=== PATIENT | female | born 1980 | race African-American/Black ===

== ENCOUNTER 2017-01-28 23:49 | Emergency (ER) | payer MEDICARE, BC ==
[~2017-01-28] VITALS: Ht 167.6 cm; Wt 128.4 kg
[~2017-01-28 23:49] MED LIST: AMLO10TA4 PO; AMLO5TAB2 PO; HYDR25TA9 PO; LOSA100T6 PO; POTASSIUM CHLO10 MEQ PO; PROG100C2 PO
--- NOTE | 2017-01-29 00:20 | PHYS DOC ---
Past Medical History Past Medical History: Anxiety, Bronchitis, Hypertension, UTI Additional Past Medical Histor: possible MS Past Surgical History: Other Additional Past Surgical Histo: lip hip sx Alcohol Use: None Drug Use: None Adult General Chief Complaint Chief Complaint: VAGINAL PROBLEM HPI HPI Patient is a 36 year old female comes to emergency department stating that she' s had sexual intercourse approximately 2 months ago when she developed some vaginal irritation she states that he has a burning type sensation and has some white to clear discharge. She states that she is very irritated with a lot of soaps. She states that before her partner had sexual intercourse she did not have him wash off with fentanyl packs to prevent irritation. 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 She states the irritation continues to occur. She is unsure of the vaginal discharge at this time. She'll states that she does have a vaginal odor that smells like cream of mushroom. Patient states that she has not concern for sexual transmitted infections. Patient states she does have a history of hypertension and had not taken her medication this morning. Patient states that she has been under a lot of stress with family members being sick. Patient denies any increased shortness of air difficulty breathing. She denies any chest pain or discomfort. She denies any headaches blurred vision or any tinnitus. Review of Systems Review of Systems Constitutional: Denies fever or chills [] Eyes: Denies change in visual acuity, redness, or eye pain [] HENT: Denies nasal congestion or sore throat [] Respiratory: Denies cough or shortness of breath [] Cardiovascular: No additional information not addressed in HPI [] GI: Denies abdominal pain, nausea, vomiting, bloody stools or diarrhea [] : Denies dysuria or hematuria [] Musculoskeletal: Denies back pain or joint pain [] Integument: Denies rash or skin lesions [] Neurologic: Denies headache, focal weakness or sensory changes [] Endocrine: Denies polyuria or polydipsia [] C/o vaginal discharge with itching Current Medications Current Medications Current Medications Medications (Trade) Dose Ordered Sig/Devin Start Time Stop Time Status Last Admin Dose Admin Ceftriaxone Sodium (Rocephin Im) 250 mg 1X ONCE 01/29/17 01:00 01/29/17 01:01 DC Losartan Potassium (Cozaar) 50 mg 1X ONCE 01/29/17 01:00 01/29/17 01:01 DC Allergies Allergies Allergies Coded Allergies Type Severity Reaction Last Updated Verified No Known Drug Allergies 02/21/14 No Physical Exam Physical Exam Constitutional: Well developed, well nourished, no acute distress, non-toxic appearance. [] HENT: Normocephalic, atraumatic, bilateral external ears normal, oropharynx moist, no oral exudates, nose normal. [] Eyes: PERRLA, EOMI, conjunctiva normal, no discharge. [] Neck: Normal range of motion, no tenderness, supple, no stridor. [] Cardiovascular:Heart rate regular rhythm, no murmur [] Lungs & Thorax: Bilateral breath sounds clear to auscultation [] Abdomen: Bowel sounds hypoactive, soft, no tenderness, no masses, no pulsatile masses. [] Skin: Warm, dry, no erythema, no rash. [] Back: No tenderness Extremities: No tenderness, no cyanosis, no clubbing, ROM intact, no edema. [] Neurologic: Alert and oriented X 3, normal motor function, normal sensory function, no focal deficits noted. [] Psychologic: Affect normal, judgement normal, mood normal. [] Pelvic exam: Speculum exam patient with yellow vaginal discharge noted, manual exam patient with left adnexal tenderness. no CMT, Current Patient Data Vital Signs Vital Signs Date Time Temp Pulse Resp B/P (MAP) Pulse Ox O2 Delivery O2 Flow Rate FiO2 01/29/17 00:00 98.4 87 18 97 Room Air 98.4 Lab Values Laboratory Tests Test 01/29/17 00:08 Urine Collection Type U cath Urine Color Yellow Urine Clarity Clear Urine pH 6.0 Urine Specific [place] >=1.030 Urine Protein 30 mg/dL (NEG-TRACE) Urine Glucose (UA) Negative mg/dL (NEG) Urine Ketones (Stick) Trace mg/dL (NEG) Urine Blood Negative (NEG) Urine Nitrite Negative (NEG) Urine Bilirubin Negative (NEG) Urine Urobilinogen Dipstick 0.2 mg/dL (0.2 mg/dL) Urine Leukocyte Esterase Negative (NEG) Urine RBC 0 /HPF (0-2) Urine WBC Occ /HPF (0-4) Urine Squamous Epithelial Cells Few /LPF Urine Bacteria 0 /HPF (0-FEW) Urine Mucus Mod /LPF Microbiology 01/29/17 Wet Prep - Final, Complete Laboratory Tests Test 01/29/17 00:08 Urine Collection Type U cath Urine Color Yellow Urine Clarity Clear Urine pH 6.0 Urine Specific [place] >=1.030 Urine Protein 30 mg/dL (NEG-TRACE) Urine Glucose (UA) Negative mg/dL (NEG) Urine Ketones (Stick) Trace mg/dL (NEG) Urine Blood Negative (NEG) Urine Nitrite Negative (NEG) Urine Bilirubin Negative (NEG) Urine Urobilinogen Dipstick 0.2 mg/dL (0.2 mg/dL) Urine Leukocyte Esterase Negative (NEG) Urine RBC 0 /HPF (0-2) Urine WBC Occ /HPF (0-4) Urine Squamous Epithelial Cells Few /LPF Urine Bacteria 0 /HPF (0-FEW) Urine Mucus Mod /LPF Microbiology 01/29/17 Wet Prep - Final, Complete EKG EKG [] Radiology/Procedures Radiology/Procedures [] Course & Med Decision Making Course & Med Decision Making Pertinent Labs and Imaging studies reviewed. (See chart for details) Vaginal exam completed with history completed for urine sample. This was done with sterile technique. Results identify bacterial vaginosis, as well as details noted in the urine. Spoke with patient regards to her hypertension and taking her blood pressure medication. Patient was also encouraged take her blood pressure medicine when she arrived home. Recommended that she monitor her blood pressure as well as keeping a log of the measurement for when she follows up with her primary care physician. Also spoke with patient in regards to Flagyl in which she'll be placed on for the next [address] also place her on doxycycline as well for PID as she was having pain in the left adnexal area. Patient will be provided with a Rocephin injection here in the emergency department. Patient denies any concerns for STDs at this time. Encouraged patient to follow up with her primary care physician in regards to ketones. In her urine. Also as she has been having vaginal infections for the last 2 months. Patient agrees with discharge instructions treatment regimens and follow-up recommendations at this time. Patient was provided with signs and symptoms to return back to emergency department. Patient's blood pressure was retaken by myself with a blood pressure 169/97. Patient's losartan will be held and she will not be given that at this time. [] Dragon Disclaimer Dragon Disclaimer This electronic medical record was generated, in whole or in part, using a voice recognition dictation system. Departure Departure Impression: Primary Impression: Hypertension Additional Impressions: Bacterial vaginosis PID (acute pelvic inflammatory disease) Disposition: 01 HOME, SELF-CARE Condition: STABLE Referrals: CAM ZHONG (PCP) Patient Instructions: Bacterial Vaginosis, [id number], Hypertension, Pelvic Inflammatory Disease, [id number] Additional Instructions: Activity as tolerated Medication as prescribed Drink plenty of fluids Please take you Blood pressure medications as directed Monitor your blood pressure and keep a log to take to your primary care provider Avoid sexual intercourse for the next 2 weeks Followup with primary care provider in 3-5 days Return to emergency department as needed for signs and symptoms that become worse. Scripts Doxycycline Hyclate (DOXYCYCLINE HYCLATE) 100 Mg Capsule 1 CAP PO BID, #28 CAP Prov: JOSE ALBERTO SALEH APRN 01/29/17 Metronidazole (FLAGYL) 500 Mg Tablet 1 TAB PO BID, #14 TAB Prov: JOSE ALBERTO SALEH APRN 01/29/17 Problem Qualifiers JOSE ALBERTO SALEH APRN Jan 29, 2017 00:20
[2017-01-29 00:24] LABS: BILIRUBIN,URINE NEGATIVE (NEG); GLUCOSE,URINE NEGATIVE (NEG); NITRITE,URINE NEGATIVE (NEG); PROTEIN,URINE 30 mg/dL (NEG-TRACE); UROBILINOGEN,URINE 0.2 mg/dL (0.2 mg/dL)
[2017-01-29 00:27] LABS: BACTERIA,URINE 0 /HPF (0-FEW); RBC,URINE 0 /HPF (0-2); SQUAMOUS EPITHELIAL CELL,UR FEW /LPF; WBC,URINE OCC /HPF (0-4)
[2017-01-29] MEDS ORDERED: DOXY100C2 PO (00:57)
[2017-01-29] MEDS ORDERED: METR500T PO (00:57)
[2017-01-29 01:00] VITALS: BP 169/97
[2017-01-29] MEDS ORDERED: cefTRIAXone IM 250 MG VIAL IM ONE (01:00)
[2017-01-29] MEDS ORDERED: LOSARTAN POTASSIUM 50 MG TABLET. PO ONE (01:00)
== END 2017-01-29 01:17 | disposition home or self-care (01) ==
LOC: ER 23:49
DX: I10 Essential (primary) hypertension (principal); N76.0 Acute vaginitis; N73.9 Female pelvic inflammatory disease, unspecified; F41.9 Anxiety disorder, unspecified; Z87.440 Personal history of urinary (tract) infections
CPT/HCPCS: 81001; 87491; 87591; 96372; 99284; J0696; P9612; Q0111

== ENCOUNTER 2017-02-27 20:04 | Emergency (ER) | payer MEDICARE, BC ==
[~2017-02-27] VITALS: Ht 167.6 cm; Wt 125.6 kg
[~2017-02-27 20:04] MED LIST changes: +DOXY100C2 PO; +METR500T PO
[2017-02-27] MEDS ORDERED: ONDANSETRON PF 4 MG/2 ML VIAL. IV ONE ×2 (20:45→21:45)
[2017-02-27 21:14] LABS: BASO # 0.1 x10^3/uL (0.0-0.2); BASO % 1 % (0-3); EOS % 0 % (0-3); HEMATOCRIT 42.7 % (36.0-47.0); HEMOGLOBIN 13.8 g/dL (12.0-15.5); LYMPH # 1.5 x10^3/uL (1.0-4.8); LYMPH % 12 % (24-48); MEAN CORPUSCULAR HEMOGLOBIN 30 pg (25-35); MEAN CORPUSCULAR HGB CONC 32 g/dL (31-37); MEAN CORPUSCULAR VOLUME 93 fL (79-100); MONO % 6 % (0-9); NEUT % 81 % (31-73); PLATELET COUNT 385 x10^3/uL (140-400); RED BLOOD COUNT 4.57 x10^6/uL (3.50-5.40); RED CELL DISTRIBUTION WIDTH 15.1 % (11.5-14.5); WHITE BLOOD COUNT 12.9 x10^3/uL (4.0-11.0)
--- NOTE | 2017-02-27 21:18 | PHYS DOC ---
Past Medical History Past Medical History: Anxiety, Bronchitis, Hypertension, UTI Additional Past Medical Histor: possible MS, PCOS Past Surgical History: Other Additional Past Surgical Histo: L hip sx Alcohol Use: None Drug Use: None Adult General Chief Complaint Chief Complaint: HYPERVENTILATION HPI HPI Patient is a 36 year old -Prydeinig Prydeinig female who presents with nausea, headache and high blood pressure. She states she's been out of her clonidine is which she takes when she started getting a headache and her high blood pressure flares up. She states she's been compliant with her other medications. She states the headaches a constant dull ache across the frontal aspect of her forehead and she vomited once. She states this happens every time her blood pressure gets out of control. She states this morning she ate a [place] [employer] breakfast which she hardly ever does and she is sure that the salt content has raised her blood pressure. She denies any chest pain, shortness of breath or abdominal pain. She is requesting 0.1 mg clonidine and states that this usually will take away her headache. She hasn't tried any Tylenol or other medications as she states only clonidine makes her headaches better when this happens. Review of Systems Review of Systems Constitutional: Denies fever or chills [] Eyes: Denies change in visual acuity, redness, or eye pain [] HENT: Denies nasal congestion or sore throat [] Respiratory: Denies cough or shortness of breath [] Cardiovascular: No additional information not addressed in HPI [] GI: Denies abdominal pain, nausea, vomiting, bloody stools or diarrhea [] : Denies dysuria or hematuria [] Musculoskeletal: Denies back pain or joint pain [] Integument: Denies rash or skin lesions [] Neurologic: Denies , focal weakness or sensory changes, positive for headache[] Endocrine: Denies polyuria or polydipsia [] Current Medications Current Medications Current Medications Medications (Trade) Dose Ordered Sig/Devin Start Time Stop Time Status Last Admin Dose Admin Clonidine HCl (Catapres) 0.1 mg 1X ONCE 02/27/17 21:30 02/27/17 21:31 DC 02/27/17 21:34 0.1 MG Ondansetron HCl (Zofran) 4 mg 1X ONCE 02/27/17 21:45 02/27/17 21:46 DC 02/27/17 22:01 4 MG Allergies Allergies Allergies Coded Allergies Type Severity Reaction Last Updated Verified No Known Drug Allergies 02/21/14 No Physical Exam Physical Exam Constitutional: Well developed, well nourished, no acute distress, non-toxic appearance. [] HENT: Normocephalic, atraumatic, bilateral external ears normal, oropharynx moist, no oral exudates, nose normal. [] Eyes: PERRLA, EOMI, conjunctiva normal, no discharge. [] Neck: Normal range of motion, no tenderness, supple, no stridor. [] Cardiovascular:Heart rate regular rhythm, no murmur [] Lungs & Thorax: Bilateral breath sounds clear to auscultation [] Abdomen: Bowel sounds normal, soft, no tenderness, no masses, no pulsatile masses. [] Skin: Warm, dry, no erythema, no rash. [] Back: No tenderness, no CVA tenderness. [] Extremities: No tenderness, no cyanosis, no clubbing, ROM intact, no edema. [] Neurologic: Alert and oriented X 3, normal motor function, normal sensory function, no focal deficits noted. [] Psychologic: Affect normal, judgement normal, mood normal. [] Current Patient Data Vital Signs Vital Signs Date Time Temp Pulse Resp B/P (MAP) Pulse Ox O2 Delivery O2 Flow Rate FiO2 02/27/17 22:15 76 18 160/90 (113) 96 02/27/17 21:27 Room Air 02/27/17 20:15 98.8 98.8 Lab Values Laboratory Tests Test 02/27/17 20:28 02/27/17 20:35 02/27/17 21:10 POC Urine HCG, Qualitative Hcg negative (Negative) White Blood Count 12.9 x10^3/uL (4.0-11.0) H Red Blood Count 4.57 x10^6/uL (3.50-5.40) Hemoglobin 13.8 g/dL (12.0-15.5) Hematocrit 42.7 % (36.0-47.0) Mean Corpuscular Volume 93 fL (79-100) Mean Corpuscular Hemoglobin 30 pg (25-35) Mean Corpuscular Hemoglobin Concent 32 g/dL (31-37) Red Cell Distribution Width 15.1 % (11.5-14.5) H Platelet Count 385 x10^3/uL (140-400) Neutrophils (%) (Auto) 81 % (31-73) H Lymphocytes (%) (Auto) 12 % (24-48) L Monocytes (%) (Auto) 6 % (0-9) Eosinophils (%) (Auto) 0 % (0-3) Basophils (%) (Auto) 1 % (0-3) Neutrophils # (Auto) 10.5 x10^3uL (1.8-7.7) H Lymphocytes # (Auto) 1.5 x10^3/uL (1.0-4.8) Monocytes # (Auto) 0.8 x10^3/uL (0.0-1.1) Eosinophils # (Auto) 0.0 x10^3/uL (0.0-0.7) Basophils # (Auto) 0.1 x10^3/uL (0.0-0.2) Sodium Level 141 mmol/L (136-145) Potassium Level 4.0 mmol/L (3.5-5.1) Chloride Level 102 mmol/L (98-107) Carbon Dioxide Level 28 mmol/L (21-32) Anion Gap 11 (6-14) Blood Urea Nitrogen 11 mg/dL (7-20) Creatinine 1.1 mg/dL (0.6-1.0) H Estimated GFR (Cockcroft-Gault) 67.3 Glucose Level 103 mg/dL (70-99) H Calcium Level 9.4 mg/dL (8.5-10.1) Total Bilirubin 0.5 mg/dL (0.2-1.0) Direct Bilirubin 0.1 mg/dL (0.0-0.2) Aspartate Amino Transferase (AST) 25 U/L (15-37) Alanine Aminotransferase (ALT) 34 U/L (14-59) Alkaline Phosphatase 96 U/L (46-116) Creatine Kinase 89 U/L (26-192) Creatine Kinase MB (Mass) < 0.5 ng/mL (0.0-3.6) Creatine Kinase MB Relative Index 0.6 % (0-4) Troponin I Quantitative < 0.017 ng/mL (0.000-0.055) JU-[id number]-W-Type Natriuretic Peptide 53 pg/mL (0-124) Total Protein 7.9 g/dL (6.4-8.2) Albumin 4.2 g/dL (3.4-5.0) Urine Collection Type Unknown Urine Color Yellow Urine Clarity Clear Urine pH 7.5 Urine Specific [place] 1.015 Urine Protein Negative mg/dL (NEG-TRACE) Urine Glucose (UA) Negative mg/dL (NEG) Urine Ketones (Stick) Negative mg/dL (NEG) Urine Blood Negative (NEG) Urine Nitrite Negative (NEG) Urine Bilirubin Negative (NEG) Urine Urobilinogen Dipstick 0.2 mg/dL (0.2 mg/dL) Urine Leukocyte Esterase Trace (NEG) Urine RBC 0 /HPF (0-2) Urine WBC Occ /HPF (0-4) Urine Squamous Epithelial Cells Many /LPF Urine Bacteria Few /HPF (0-FEW) Urine Mucus Slight /LPF Urine Opiates Screen Neg (NEG) Urine Methadone Screen Neg (NEG) Urine Barbiturates Neg (NEG) Urine Phencyclidine Screen Neg (NEG) Urine Amphetamine/Methamphetamine Neg (NEG) Urine Benzodiazepines Screen Neg (NEG) Urine Cocaine Screen Neg (NEG) Urine Cannabinoids Screen Neg (NEG) Urine Ethyl Alcohol Neg (NEG) Laboratory Tests 02/27/17 20:35 Laboratory Tests 02/27/17 20:35 EKG EKG EKG shows sinus rhythm with a rate of [address] elevations, flattening of the T waves in lead 3, left axis deviation, QTC 456 ms, as interpreted by me. Radiology/Procedures Radiology/Procedures [] Impressions: Hypertension Headache Course & Med Decision Making Course & Med Decision Making Pertinent Labs and Imaging studies reviewed. (See chart for details) Her labs show any acute abnormality. After 0.1 mg clonidine she states her headache has now resolved. Her blood pressures in the 160s. Patient is being discharged with 10 tablets 0.1 mg clonidine to be used as needed with systolics rate of 170. Patient's follow-up primary care physician within next week. Return precautions given. She is agreeable plan and being discharged in stable condition this time. Dragon Disclaimer Dragon Disclaimer This electronic medical record was generated, in whole or in part, using a voice recognition dictation system. Departure Departure Impression: Primary Impression: Hypertension Disposition: HOME, SELF-CARE Condition: STABLE Referrals: CAM ZHONG (PCP) Patient Instructions: Arterial Hypertension Additional Instructions: You were seen today for your elevated blood pressure and headache. You were given clonidine 0.1 mg and your blood pressure has improved and headache have now resolved area in your being discharged home with 10 tablets of 0.1 mg clonidine to use when necessary blood pressure greater than 170s. Need to call your primary care physician if you need to use this medicine for your high blood pressure. You will need to follow-up with your primary care physician. Return ER for severe chest pain, uncontrolled nausea vomiting, headaches or other concerns. Scripts Clonidine Hcl (CLONIDINE HCL) 0.1 Mg Tablet 0.1 MG PO DAILY Y for ELEVATED BP, SEE COMMENTS, #10 TAB for systolic blood pressure over 170mmhg, take 1 tablet prn Prov: SAL LOONEY MD 02/27/17 Problem Qualifiers Primary Impression: Hypertension Hypertension type: essential hypertension Qualified Codes: I10 - Essential ( primary) hypertension SAL LOONEY MD Feb 27, 2017 21:18
[2017-02-27 21:28] LABS: CALCIUM 9.4 mg/dL (8.5-10.1); CREATININE 1.1 mg/dL (0.6-1.0); GFR 67.3
[2017-02-27 21:29] LABS: BILIRUBIN,URINE NEGATIVE (NEG); GLUCOSE,URINE NEGATIVE (NEG); NITRITE,URINE NEGATIVE (NEG); PH,URINE 7.5; PROTEIN,URINE NEGATIVE (NEG-TRACE); UROBILINOGEN,URINE 0.2 mg/dL (0.2 mg/dL)
[2017-02-27] MEDS ORDERED: cloNIDine HCL 0.1 MG TABLET PO ONE (21:30)
[2017-02-27 21:34] LABS: ALBUMIN 4.2 g/dL (3.4-5.0); DIRECT BILIRUBIN 0.1 mg/dL (0.0-0.2); TOTAL BILIRUBIN 0.5 mg/dL (0.2-1.0); TOTAL PROTEIN 7.9 g/dL (6.4-8.2)
[2017-02-27 21:34] LABS: BARBITURATES NEG (NEG); BENZODIAZEPINES NEG (NEG); CANNABINOIDS NEG (NEG); COCAINE NEG (NEG); METHADONE NEG (NEG); OPIATES NEG (NEG); PHENCYCLIDINE NEG (NEG)
[2017-02-27 21:38] LABS: BACTERIA,URINE FEW /HPF (0-FEW); RBC,URINE 0 /HPF (0-2); SQUAMOUS EPITHELIAL CELL,UR MANY /LPF; WBC,URINE OCC /HPF (0-4)
[2017-02-27 21:44] LABS: CKMB MASS < 0.5 ng/mL (0.0-3.6); CREATINE KINASE 89 U/L (26-192)
[2017-02-27] MEDS ORDERED: CLON0.1T PO (22:47)
[2017-02-27 22:55] VITALS: BP 146/97
--- NOTE | 2017-02-28 08:19 | EKG ---
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
== END 2017-02-27 22:56 | disposition home or self-care (01) ==
LOC: ER 20:04
DX: I10 Essential (primary) hypertension (principal); F41.9 Anxiety disorder, unspecified; Z87.440 Personal history of urinary (tract) infections; Z79.899 Other long term (current) drug therapy
CPT/HCPCS: 36415; 80048; 80076; 80305; 80320; 81001; 81025; 82553; 83880; 84484; 85027; 87086; 93005; 96374; 96376; 99285; J2405; 96375; G0481

== ENCOUNTER → 2017-11-04 | Outpatient (CLI) | payer MEDICARE, BC | END | disposition home or self-care (01) | LOC: ECHO 09:05 | DX: I11.9 Hypertensive heart disease without heart failure (principal) | CPT/HCPCS: 93306 ==

== ENCOUNTER 2018-08-07 18:00 | Emergency (ER) | payer MEDICARE, BC ==
[~2018-08-07] VITALS: Ht 167.6 cm; Wt 120.2 kg
[~2018-08-07 18:00] MED LIST changes: -AMLO5TAB2 PO; +AMLO5TAB7 PO; +CLON0.1T PO; +HYDR-2145 PO; -HYDR25TA9 PO; +LOSA100T14 PO; -LOSA100T6 PO; +POTA10TA12 PO; -POTASSIUM CHLO10 MEQ PO
[2018-08-07] MEDS: cloNIDine HCL 0.1 MG TABLET PO ONE (18:34)
[2018-08-07 18:50] LABS: BASO # 0.1 x10^3/uL (0.0-0.2); BASO % 1 % (0-3); EOS # 0.1 x10^3/uL (0.0-0.7); EOS % 1 % (0-3); HEMATOCRIT 41.7 % (36.0-47.0); HEMOGLOBIN 14.1 g/dL (12.0-15.5); LYMPH # 1.5 x10^3/uL (1.0-4.8); LYMPH % 18 % (24-48); MEAN CORPUSCULAR HEMOGLOBIN 30 pg (25-35); MEAN CORPUSCULAR HGB CONC 34 g/dL (31-37); MEAN CORPUSCULAR VOLUME 88 fL (79-100); MONO # 0.6 x10^3/uL (0.0-1.1); MONO % 7 % (0-9); NEUT # 6.2 x10^3uL (1.8-7.7); NEUT % 74 % (31-73); PLATELET COUNT 355 x10^3/uL (140-400); RED BLOOD COUNT 4.73 x10^6/uL (3.50-5.40); RED CELL DISTRIBUTION WIDTH 16.1 % (11.5-14.5); WHITE BLOOD COUNT 8.5 x10^3/uL (4.0-11.0)
[2018-08-07 18:58] LABS: CALCIUM 10.2 mg/dL (8.5-10.1); CREATININE 1.3 mg/dL (0.6-1.0); GFR 55.2; POTASSIUM 3.7 mmol/L (3.5-5.1)
[2018-08-07 19:04] LABS: TOTAL BILIRUBIN 0.8 mg/dL (0.2-1.0); TOTAL PROTEIN 8.1 g/dL (6.4-8.2)
[2018-08-07 19:45] VITALS: BP 155/98
[2018-08-07 20:12] LABS: BILIRUBIN,URINE NEGATIVE (NEG); CLARITY,URINE CLEAR; COLOR,URINE YELLOW; NITRITE,URINE NEGATIVE (NEG); PH,URINE 5.5; PROTEIN,URINE NEGATIVE (NEG-TRACE); UROBILINOGEN,URINE 0.2 mg/dL (0.2 mg/dL)
[2018-08-07 20:21] LABS: BACTERIA,URINE FEW /HPF (0-FEW); SQUAMOUS EPITHELIAL CELL,UR MOD /LPF
[2018-08-07 20:22] LABS: RBC,URINE 0 /HPF (0-2); WBC,URINE OCC /HPF (0-4)
[2018-08-07] MEDS ORDERED: CLON0.2T PO (20:43)
--- NOTE | 2018-08-07 20:43 | PHYS DOC ---
Past Medical History Past Medical History: Anxiety, Bronchitis, Hypertension, UTI Additional Past Medical Histor: possible MS, PCOS Past Surgical History: Other Additional Past Surgical Histo: L hip sx Alcohol Use: Occasionally Drug Use: None Adult General Chief Complaint Chief Complaint: HYPERTENSION HPI HPI Patient is a 37-year-old female who presents with complaint of elevated blood pressure. Patient states that 2 of her hypertensive medications are on recall so she is only taking 1 of her 3 medications. She states that she thought that her blood pressure was getting elevated because she was a little bit dizzy today. She denies any chest pain or shortness of breath. Patient states that there are no aggravating or alleviating factors.[] Review of Systems Review of Systems Constitutional: Denies fever or chills [] Eyes: Denies change in visual acuity, redness, or eye pain [] Respiratory: Denies cough or shortness of breath [] Cardiovascular: No additional information not addressed in HPI [] Musculoskeletal: Denies back pain or joint pain [] Neurologic: Denies headache, focal weakness or sensory changes. Patient reports to mild dizziness. [] All other systems were reviewed and found to be within normal limits, except as documented in this note. Current Medications Current Medications Current Medications Medications (Trade) Dose Ordered Sig/Devin Start Time Stop Time Status Last Admin Dose Admin Clonidine HCl (Catapres) 0.2 mg 1X ONCE 08/07/18 18:45 08/07/18 18:46 DC 08/07/18 18:34 0.2 MG Allergies Allergies Allergies Coded Allergies Type Severity Reaction Last Updated Verified No Known Drug Allergies 02/21/14 No Physical Exam Physical Exam Constitutional: Well developed, well nourished, no acute distress, non-toxic appearance. [] HENT: Normocephalic, atraumatic, bilateral external ears normal, oropharynx moist, no oral exudates, nose normal. [] Eyes: PERRLA, EOMI, conjunctiva normal, no discharge. [] Neck: Normal range of motion, no tenderness, supple, no stridor. [] Cardiovascular: Regular rate and rhythm [] Lungs & Thorax: Bilateral breath sounds clear to auscultation [] Abdomen: Bowel sounds normal, soft, no tenderness. [] Skin: Warm, dry, no erythema, no rash. [] Extremities: No tenderness, no cyanosis, no clubbing, ROM intact, no edema. [] Neurologic: Alert and oriented X 3, normal motor function, normal sensory function, no focal deficits noted. [] Current Patient Data Vital Signs Vital Signs Date Time Temp Pulse Resp B/P (MAP) Pulse Ox O2 Delivery O2 Flow Rate FiO2 08/07/18 19:45 78 17 98 08/07/18 18:34 174/124 08/07/18 18:22 97.9 Room Air 97.9 Lab Values Laboratory Tests Test 08/07/18 18:40 08/07/18 20:00 White Blood Count 8.5 x10^3/uL (4.0-11.0) Red Blood Count 4.73 x10^6/uL (3.50-5.40) Hemoglobin 14.1 g/dL (12.0-15.5) Hematocrit 41.7 % (36.0-47.0) Mean Corpuscular Volume 88 fL (79-100) Mean Corpuscular Hemoglobin 30 pg (25-35) Mean Corpuscular Hemoglobin Concent 34 g/dL (31-37) Red Cell Distribution Width 16.1 % (11.5-14.5) H Platelet Count 355 x10^3/uL (140-400) Neutrophils (%) (Auto) 74 % (31-73) H Lymphocytes (%) (Auto) 18 % (24-48) L Monocytes (%) (Auto) 7 % (0-9) Eosinophils (%) (Auto) 1 % (0-3) Basophils (%) (Auto) 1 % (0-3) Neutrophils # (Auto) 6.2 x10^3uL (1.8-7.7) Lymphocytes # (Auto) 1.5 x10^3/uL (1.0-4.8) Monocytes # (Auto) 0.6 x10^3/uL (0.0-1.1) Eosinophils # (Auto) 0.1 x10^3/uL (0.0-0.7) Basophils # (Auto) 0.1 x10^3/uL (0.0-0.2) Sodium Level 138 mmol/L (136-145) Potassium Level 3.7 mmol/L (3.5-5.1) Chloride Level 102 mmol/L (98-107) Carbon Dioxide Level 32 mmol/L (21-32) Anion Gap 4 (6-14) L Blood Urea Nitrogen 12 mg/dL (7-20) Creatinine 1.3 mg/dL (0.6-1.0) H Estimated GFR (Cockcroft-Gault) 55.2 BUN/Creatinine Ratio 9 (6-20) Glucose Level 102 mg/dL (70-99) H Calcium Level 10.2 mg/dL (8.5-10.1) H Total Bilirubin 0.8 mg/dL (0.2-1.0) Aspartate Amino Transferase (AST) 17 U/L (15-37) Alanine Aminotransferase (ALT) 28 U/L (14-59) Alkaline Phosphatase 95 U/L (46-116) Troponin I Quantitative < 0.017 ng/mL (0.000-0.055) Total Protein 8.1 g/dL (6.4-8.2) Albumin 4.0 g/dL (3.4-5.0) Albumin/Globulin Ratio 1.0 (1.0-1.7) Urine Collection Type Unknown Urine Color Yellow Urine Clarity Clear Urine pH 5.5 Urine Specific [place] 1.020 Urine Protein Negative mg/dL (NEG-TRACE) Urine Glucose (UA) Negative mg/dL (NEG) Urine Ketones (Stick) Negative mg/dL (NEG) Urine Blood Negative (NEG) Urine Nitrite Negative (NEG) Urine Bilirubin Negative (NEG) Urine Urobilinogen Dipstick 0.2 mg/dL (0.2 mg/dL) Urine Leukocyte Esterase Negative (NEG) Urine RBC 0 /HPF (0-2) Urine WBC Occ /HPF (0-4) Urine Squamous Epithelial Cells Mod /LPF Urine Bacteria Few /HPF (0-FEW) Urine Mucus Mod /LPF Laboratory Tests 08/07/18 18:40 Laboratory Tests 08/07/18 18:40 EKG EKG [] Radiology/Procedures Radiology/Procedures [] Course & Med Decision Making Course & Med Decision Making Pertinent Labs and Imaging studies reviewed. (See chart for details) [] Dragon Disclaimer Dragon Disclaimer This electronic medical record was generated, in whole or in part, using a voice recognition dictation system. Departure Departure Impression: Primary Impression: Hypertension Disposition: 01 HOME, SELF-CARE Condition: STABLE Referrals: CAM ZHONG (PCP) Patient Instructions: Hypertension Scripts Clonidine Hcl (CLONIDINE HCL) 0.2 Mg Tablet 1 TAB PO BID, #20 TAB Prov: CATIE CORDOVA Jr., DO 08/07/18 Problem Qualifiers Primary Impression: Hypertension Hypertension type: essential hypertension Qualified Codes: I10 - Essential ( primary) hypertension CATIE CORDOVA Jr. DO Aug 07, 2018 20:43
--- NOTE | 2018-08-08 06:32 | EKG ---
[facility] [address] [place] [address] Test Date: 2018-08-07 Test Time: 18:27:07 Pat Name: MANNY SMITH Department: Room: Gender: F Coil Tier: : 1980 Requested By: CATIE CORDOVA Order Number: [id number] Reading MD: Measurements Intervals [place] Rate: 81 P: 0 NM: 150 QRS: 1 QRSD: 84 T: 58 QT: 444 QTc: 516 Interpretive Statements SINUS RHYTHM PROLONGED QT NO SPECIFIC ECG ABNORMALITIES RI6.01 No previous ECG available for comparison
== END 2018-08-07 20:55 | disposition home or self-care (01) ==
LOC: ER 18:00
DX: I10 Essential (primary) hypertension (principal); F41.9 Anxiety disorder, unspecified
CPT/HCPCS: 36415; 80053; 81001; 84484; 85025; 93005; 99284-25

== ENCOUNTER 2018-08-08 17:34 | Emergency (ER) | payer MEDICARE, BC ==
[~2018-08-08] VITALS: Ht 167.6 cm; Wt 121.1 kg
[~2018-08-08 17:34] MED LIST changes: +CLON0.2T PO
--- NOTE | 2018-08-08 18:28 | PHYS DOC ---
Past Medical History Past Medical History: Anxiety, Bronchitis, Hypertension, UTI Additional Past Medical Histor: possible MS, PCOS Past Surgical History: Other Additional Past Surgical Histo: L hip sx Alcohol Use: Rarely Drug Use: None Adult General Chief Complaint Chief Complaint: CHEST PAIN HPI HPI Patient is a 37 year old female who presents with chest pain. This been present intermittently for the past several days. No worse with exertion or movement. No radiation. Occasional nausea. No diaphoresis. No new swelling in legs feet or ankles. No PE risk factors. Patient was recently started on clonidine for her hypertension since her normal blood pressure medicines are on recall. Patient reports the discomfort feels like "a glob of phlegm at the lower part of my chest" and this most recent episode started while she was laying down. Reports that her discomfort didn't improve with taking 2 of the clonidine tablets. [] Review of Systems Review of Systems Constitutional: Denies fever or chills [] Eyes: Denies change in visual acuity, redness, or eye pain [] HENT: Denies nasal congestion or sore throat [] Respiratory: Denies cough or shortness of breath [] Cardiovascular: No additional information not addressed in HPI [] GI: Denies abdominal pain, nausea, vomiting, bloody stools or diarrhea [] : Denies dysuria or hematuria [] Musculoskeletal: Denies back pain or joint pain [] Integument: Denies rash or skin lesions [] Neurologic: Denies headache, focal weakness or sensory changes [] Endocrine: Denies polyuria or polydipsia [] All other systems were reviewed and found to be within normal limits, except as documented in this note. Current Medications Current Medications Current Medications Medications (Trade) Dose Ordered Sig/Devin Start Time Stop Time Status Last Admin Dose Admin Aspirin (Children'S Aspirin) 324 mg 1X ONCE 08/08/18 18:30 08/08/18 18:31 DC 08/08/18 19:06 324 MG Info (CONTRAST GIVEN -- Rx MONITORING) 1 each PRN DAILY PRN 08/08/18 21:15 08/10/18 21:14 Iohexol (Omnipaque 300 Mg/ml) 100 ml 1X ONCE 08/08/18 21:30 08/08/18 21:31 DC 08/08/18 21:21 100 ML Allergies Allergies Allergies Coded Allergies Type Severity Reaction Last Updated Verified No Known Drug Allergies 02/21/14 No Physical Exam Physical Exam Constitutional: Well developed, well nourished, no acute distress, non-toxic appearance. [] HENT: Normocephalic, atraumatic, bilateral external ears normal, oropharynx moist, no oral exudates, nose normal. [] Eyes: PERRLA, EOMI, conjunctiva normal, no discharge. [] Neck: Normal range of motion, no tenderness, supple, no stridor. [] Cardiovascular:Heart rate regular rhythm, no murmur [] Lungs & Thorax: Bilateral breath sounds clear to auscultation [] Abdomen: Bowel sounds normal, soft, no tenderness, no masses, no pulsatile masses. [] Skin: Warm, dry, no erythema, no rash. [] Back: No tenderness, no CVA tenderness. [] Extremities: No tenderness, no cyanosis, no clubbing, ROM intact, no edema. [] Neurologic: Alert and oriented X 3, normal motor function, normal sensory function, no focal deficits noted. [] Psychologic: Affect normal, judgement normal, mood normal. [] Current Patient Data Vital Signs Vital Signs Date Time Temp Pulse Resp B/P (MAP) Pulse Ox O2 Delivery O2 Flow Rate FiO2 08/08/18 20:00 66 16 136/85 (102) 97 Room Air 08/08/18 17:43 98.5 98.5 Lab Values Laboratory Tests Test 08/08/18 18:08 08/08/18 19:11 08/08/18 19:30 08/08/18 19:34 White Blood Count 7.3 x10^3/uL (4.0-11.0) Red Blood Count 4.45 x10^6/uL (3.50-5.40) Hemoglobin 13.2 g/dL (12.0-15.5) Hematocrit 39.6 % (36.0-47.0) Mean Corpuscular Volume 89 fL (79-100) Mean Corpuscular Hemoglobin 30 pg (25-35) Mean Corpuscular Hemoglobin Concent 33 g/dL (31-37) Red Cell Distribution Width 15.6 % (11.5-14.5) H Platelet Count 338 x10^3/uL (140-400) Neutrophils (%) (Auto) 68 % (31-73) Lymphocytes (%) (Auto) 21 % (24-48) L Monocytes (%) (Auto) 8 % (0-9) Eosinophils (%) (Auto) 1 % (0-3) Basophils (%) (Auto) 1 % (0-3) Neutrophils # (Auto) 5.0 x10^3uL (1.8-7.7) Lymphocytes # (Auto) 1.5 x10^3/uL (1.0-4.8) Monocytes # (Auto) 0.6 x10^3/uL (0.0-1.1) Eosinophils # (Auto) 0.1 x10^3/uL (0.0-0.7) Basophils # (Auto) 0.1 x10^3/uL (0.0-0.2) Prothrombin Time 13.0 SEC (11.7-14.0) Prothrombin Time INR 1.0 (0.8-1.1) D-Dimer (Mayela) 1.64 ug/mlFEU (0.00-0.50) H Sodium Level 139 mmol/L (136-145) Potassium Level 3.2 mmol/L (3.5-5.1) L Chloride Level 101 mmol/L (98-107) Carbon Dioxide Level 30 mmol/L (21-32) Anion Gap 8 (6-14) Blood Urea Nitrogen 11 mg/dL (7-20) Creatinine 1.1 mg/dL (0.6-1.0) H Estimated GFR (Cockcroft-Gault) 66.9 BUN/Creatinine Ratio 10 (6-20) Glucose Level 110 mg/dL (70-99) H Calcium Level 9.2 mg/dL (8.5-10.1) Magnesium Level 1.9 mg/dL (1.8-2.4) Total Bilirubin 0.5 mg/dL (0.2-1.0) Aspartate Amino Transferase (AST) 15 U/L (15-37) Alanine Aminotransferase (ALT) 23 U/L (14-59) Alkaline Phosphatase 91 U/L (46-116) Troponin I Quantitative < 0.017 ng/mL (0.000-0.055) KG-Bud-L-Type Natriuretic Peptide 11 pg/mL (0-124) Total Protein 7.7 g/dL (6.4-8.2) Albumin 3.6 g/dL (3.4-5.0) Albumin/Globulin Ratio 0.9 (1.0-1.7) L Lipase 121 U/L (73-393) Urine Collection Type Unknown Urine Color Yellow Urine Clarity Clear Urine pH 5.5 Urine Specific [place] 1.010 Urine Protein Negative mg/dL (NEG-TRACE) Urine Glucose (UA) Negative mg/dL (NEG) Urine Ketones (Stick) Negative mg/dL (NEG) Urine Blood Negative (NEG) Urine Nitrite Negative (NEG) Urine Bilirubin Negative (NEG) Urine Urobilinogen Dipstick 0.2 mg/dL (0.2 mg/dL) Urine Leukocyte Esterase Negative (NEG) Urine RBC 0 /HPF (0-2) Urine WBC 1-4 /HPF (0-4) Urine Squamous Epithelial Cells Few /LPF Urine Bacteria 0 /HPF (0-FEW) Urine Opiates Screen Neg (NEG) Urine Methadone Screen Neg (NEG) Urine Barbiturates Neg (NEG) Urine Phencyclidine Screen Neg (NEG) Urine Amphetamine/Methamphetamine Neg (NEG) Urine Benzodiazepines Screen Neg (NEG) Urine Cocaine Screen Neg (NEG) Urine Cannabinoids Screen Neg (NEG) Urine Ethyl Alcohol Neg (NEG) POC Urine HCG, Qualitative Hcg negative (Negative) Laboratory Tests 08/08/18 18:08 Laboratory Tests 08/08/18 19:11 EKG EKG EKG shows a sinus rhythm at 82 bpm, normal axis, normal QTC, no ST elevations,[] Radiology/Procedures Radiology/Procedures Chest x-ray FINDINGS: Heart is normal in size. Lungs are clear. No pneumothorax or effusion. Visualized bony thorax is within normal limits. IMPRESSION: No acute pulmonary process. CTA of the chest [] Course & Med Decision Making Course & Med Decision Making Pertinent Labs and Imaging studies reviewed. (See chart for details) ED course: Patient arrived, was placed in bed, tolerated exam well. Patient was transported to and from x-ray without complications. After the return of the elevated d-dimer CT angiogram was ordered. Patient was transported to and from CT without any complications. After return labs and CT findings, these were discussed with the patient and her cousin who both voiced understanding. All questions were answered. Patient was discharged in improved condition. Medical decision making: No evidence of an acute coronary syndrome, no pneumonia , no pneumothorax, no pulmonary embolism, no esophageal rupture, no hemothorax.[ ] Dragon Disclaimer Dragon Disclaimer This electronic medical record was generated, in whole or in part, using a voice recognition dictation system. Departure Departure Impression: Primary Impression: Chest pain Disposition: HOME, SELF-CARE Condition: GOOD Referrals: CAM ZHONG (PCP) Patient Instructions: Chest Pain (Nonspecific) Additional Instructions: Follow-up with your primary care physician in 2 days as scheduled. Take your blood pressure medicine as prescribed. Take Tylenol as needed, as directed on the package for pain. Try to avoid anti-inflammatory medicines like ibuprofen and naproxen because they can increase blood pressure area did return to the ER if worsening pain, difficulty breathing, or any other concerns. Problem Qualifiers Primary Impression: Chest pain Chest pain type: unspecified Qualified Codes: R07.9 - Chest pain, unspecified LILI DEL CASTILLO DO Aug 08, 2018 18:28
[2018-08-08 18:35] LABS: BASO # 0.1 x10^3/uL (0.0-0.2); BASO % 1 % (0-3); EOS # 0.1 x10^3/uL (0.0-0.7); EOS % 1 % (0-3); HEMATOCRIT 39.6 % (36.0-47.0); HEMOGLOBIN 13.2 g/dL (12.0-15.5); LYMPH # 1.5 x10^3/uL (1.0-4.8); LYMPH % 21 % (24-48); MEAN CORPUSCULAR HEMOGLOBIN 30 pg (25-35); MEAN CORPUSCULAR HGB CONC 33 g/dL (31-37); MEAN CORPUSCULAR VOLUME 89 fL (79-100); MONO # 0.6 x10^3/uL (0.0-1.1); MONO % 8 % (0-9); NEUT % 68 % (31-73); PLATELET COUNT 338 x10^3/uL (140-400); RED BLOOD COUNT 4.45 x10^6/uL (3.50-5.40); RED CELL DISTRIBUTION WIDTH 15.6 % (11.5-14.5); WHITE BLOOD COUNT 7.3 x10^3/uL (4.0-11.0)
[2018-08-08 18:54] LABS: D-DIMER 1.64 ug/mlFEU (0.00-0.50)
[2018-08-08] MEDS: ASPIRIN CHEWABLE 81 MG TABLET. PO ONE (19:06)
--- NOTE | 2018-08-08 19:21 | RAD ---
CHEST PA LATERAL CLINICAL INDICATION: ER PATIENT. ATRAUMATIC CHEST PAIN. Hx HTN, ASTHMA. PRIOR XRAY. COMPARISON: 08/18/2017 FINDINGS: Heart is normal in size. Lungs are clear. No pneumothorax or effusion. Visualized bony thorax is within normal limits. IMPRESSION: No acute pulmonary process. Electronically signed by: Kiran Flores DO (08/08/2018 7:18 PM) [facility]
[2018-08-08 19:28] LABS: CALCIUM 9.2 mg/dL (8.5-10.1); CREATININE 1.1 mg/dL (0.6-1.0); GFR 66.9; POTASSIUM 3.2 mmol/L (3.5-5.1)
[2018-08-08 19:34] LABS: ALBUMIN 3.6 g/dL (3.4-5.0); ALBUMIN/GLOBULIN RATIO 0.9 (1.0-1.7); MAGNESIUM 1.9 mg/dL (1.8-2.4); TOTAL BILIRUBIN 0.5 mg/dL (0.2-1.0); TOTAL PROTEIN 7.7 g/dL (6.4-8.2)
[2018-08-08 19:40] LABS: BILIRUBIN,URINE NEGATIVE (NEG); CLARITY,URINE CLEAR; COLOR,URINE YELLOW; NITRITE,URINE NEGATIVE (NEG); PH,URINE 5.5; PROTEIN,URINE NEGATIVE (NEG-TRACE); UROBILINOGEN,URINE 0.2 mg/dL (0.2 mg/dL)
[2018-08-08 19:46] LABS: BACTERIA,URINE 0 /HPF (0-FEW); RBC,URINE 0 /HPF (0-2); SQUAMOUS EPITHELIAL CELL,UR FEW /LPF
[2018-08-08 19:47] LABS: BARBITURATES NEG (NEG); BENZODIAZEPINES NEG (NEG); CANNABINOIDS NEG (NEG); COCAINE NEG (NEG); METHADONE NEG (NEG); OPIATES NEG (NEG); PHENCYCLIDINE NEG (NEG)
[2018-08-08 19:48] LABS: AMPHETAMINE/METHAMPHETAMINE NEG (NEG)
[2018-08-08] MEDS ORDERED: CONTRAST GIVEN. MC PRN (21:15)
[2018-08-08] MEDS: IOHEXOL 300 MG/ML 100ML VIAL. IV ONE (21:21)
--- NOTE | 2018-08-08 21:36 | RAD ---
PQRS Compliance statement: One or more of the following individualized dose reduction techniques were utilized for this examination: 1. Automated exposure control. 2. Adjustment of the mA and/or kV according to patient size. 3. Use of iterative reconstruction technique. Indication:CHEST PAIN, SHORTNESS OF BREATH TECHNIQUE: CT angiogram of the chest with IV contrast with multiplanar MIP reformats. COMPARISON:08/23/2017 FINDINGS: Diagnostic quality PE study. There are no central, segmental or subsegmental filling defects in the pulmonary arteries. Heart is normal in size. No pericardial or pleural effusion. No axillary adenopathy. No mediastinal adenopathy. Shotty hilar lymph nodes are seen, nonspecific likely reactive. Central airways are patent. Lungs are clear. Visualized sections through the liver, spleen, gallbladder, pancreas, adrenals and kidneys within normal limits. No suspicious bony lesion. IMPRESSION: No PE. No pneumonia. Electronically signed by: Kiran Flores DO (08/08/2018 9:32 PM) [facility]
[2018-08-08 22:10] VITALS: BP 136/86
--- NOTE | 2018-08-09 06:18 | EKG ---
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
== END 2018-08-08 22:14 | disposition home or self-care (01) ==
LOC: ER 17:34
DX: R07.89 Other chest pain (principal); R79.1 Abnormal coagulation profile; I10 Essential (primary) hypertension; J45.909 Unspecified asthma, uncomplicated; F41.9 Anxiety disorder, unspecified; Z87.440 Personal history of urinary (tract) infections
CPT/HCPCS: 36415; 71046; 71275; 80053; 80307; 81001; 81025; 83690; 83735; 83880; 84484; 85025; 85379; 85610; 93005; 99284; Q9967

== ENCOUNTER 2021-07-09 16:39 | Inpatient (IN) | payer MEDICARE, MEDICAID ==
[2021-07-09] VITALS (8 sets, daily range): BP systolic 148–167; BP diastolic 18–100
[~2021-07-09] VITALS: Ht 167.6 cm; Wt 129.1 kg
[~2021-07-09 16:39] MED LIST changes: +AMLO-186 PO; -AMLO5TAB7 PO; -DOXY100C2 PO; +DOXY100C3 PO; +PROG100C10 PO; -PROG100C2 PO
[2021-07-09] MEDS ORDERED: ASPIRIN 325 MG TABLET PO ONE (17:30)
--- NOTE | 2021-07-09 17:32 | PHYS DOC ---
Past Medical History Past Medical History: Anxiety, Asthma, Bronchitis, Hypertension, UTI, Other Additional Past Medical Histor: possible MS, PCOS Past Surgical History: Other Additional Past Surgical Histo: L hip sx Smoking Status: Never Smoker Alcohol Use: Rarely Drug Use: None General Adult EDM: Chief Complaint: HYPERTENSION HPI: HPI: Patient is a 40 year old female who presents with has been having to get a test done that she cannot remember the name of it with her vocal artist and they state for her to not take any of her blood pressure medications because it can mess the test up. She states that she has had to keep redoing it because it was not coming back right possibly due to medications in her system. Patient states she has not taken amlodipine, propranolol, spironolactone or her as needed clonidine x1 month. She states that she has a headache, nausea and was having chest pain earlier. She states she does not usually feel this bad. She states she took a amlodipine, spironolactone and a as needed clonidine prior to coming. She states that she thought it would make her feel better but it is not. Patient is rating her headache an 8 out of 10. She denies visual change, focal weakness, numbness or tingling, vomiting, diarrhea, fever, shortness of breath, abdominal pain, back pain. She denies any chest pain at this time. Review of Systems: Review of Systems: Constitutional: Denies fever or chills. [] Eyes: Denies change in visual acuity. [] HENT: Denies nasal congestion or sore throat. [] Respiratory: Denies cough or shortness of breath. [] Cardiovascular: + chest pain or denies edema. [] GI: Denies abdominal pain, +nausea, denies vomiting, bloody stools or diarrhea. [] : Denies dysuria. [] Musculoskeletal: Denies back pain or joint pain. [] Integument: Denies rash. [] Neurologic: + headache, denies focal weakness or sensory changes. [] Endocrine: Denies polyuria or polydipsia. [] Lymphatic: Denies swollen glands. [] Psychiatric: Denies depression or anxiety. [] Heart Score: C/O Chest Pain: Yes HEART Score for Chest Pain: HEART Score for Chest Pain Response (Comments) Value History Slighlty/Non-Suspicious 0 ECG Normal 0 Age < 45 0 Risk Factors 1 or 2 Risk Factors 1 Troponin < Normal Limit 0 Total 1 Risk Factors: Risk Factors: DM, Current or recent (<one month) smoker, HTN, HLP, family history of CAD, obesity. Risk Scores: Score 0 - 3: 2.5% MACE over next 6 weeks - Discharge Home Score 4 - 6: 20.3% MACE over next 6 weeks - Admit for Clinical Observation Score 7 - 10: 72.7% MACE over next 6 weeks - Early Invasive Strategies Allergies: Allergies: Allergies Coded Allergies Type Severity Reaction Last Updated Verified No Known Drug Allergies 02/21/14 No Physical Exam: PE: Constitutional: Well developed, well nourished, no acute distress, non-toxic appearance. [] HENT: Normocephalic, atraumatic, bilateral external ears normal, oropharynx moist, no oral exudates, nose normal. [] Eyes: PERRLA, EOMI, conjunctiva normal, no discharge. [] Neck: Normal range of motion, no tenderness, supple, no stridor. [] Cardiovascular:Heart rate regular rhythm, no murmur [] Lungs & Thorax: Bilateral upper breath sounds clear lower diminished to auscultation [] Abdomen: Bowel sounds normal, soft, no tenderness, no masses, no pulsatile masses. [] Skin: Warm, dry, no erythema, no rash. [] Back: No tenderness, no CVA tenderness. [] Extremities: No tenderness, no cyanosis, no clubbing, ROM intact, no edema. [] Neurologic: Alert and oriented X 3, normal motor function, normal sensory function, no focal deficits noted. [] Psychologic: Affect normal, judgement normal, mood normal. [] EKG: EK and read by Dr. Dhillon as a sinus rhythm and no STEMI Radiology/Procedures: Radiology/Procedures: [] Impression: [facility] [address] [place] [address] IMAGING REPORT Signed PATIENT: MANNY SMITH LACCOUNT: [id number] : 1980 LOCATION: ER AGE: 40 SEX: F EXAM STATUS: REG ER ORD. PHYSICIAN: JOSE ALBERTO PATEL APRN REASON: hypertension, chest pain, nausea PROCEDURE: PORTABLE CHEST 1V Exam: Chest one view INDICATION: Hypertension TECHNIQUE: Frontal view of the chest Comparisons: 03/23/2019 FINDINGS: Heart is mildly enlarged pulmonary vessels are within normal limits. The lung and pleural spaces are clear. IMPRESSION: No acute pulmonary process. Electronically signed by: Nova Reyna MD (07/09/2021 6:28 PM) [facility] DICTATED and SIGNED BY: NOVA REYNA MD DATE: 07/09/[id number] 0 [facility] [address] [place] [address] IMAGING REPORT Signed PATIENT: MANNY SMITH LACCOUNT: [id number] : 1980 LOCATION: ER AGE: 40 SEX: F EXAM STATUS: REG ER ORD. PHYSICIAN: JOSE ALBERTO PATEL APRN REASON: headache, hypertension PROCEDURE: CT HEAD WO CONTRAST Exam: CT head INDICATION: Headache TECHNIQUE: Sequential axial images through the head were obtained without the administration of IV contrast. Exposure: One or more of the following in the visualized dose reduction techniques were utilized for this examination: 1. Automated exposure control 2. Adjustment of the MA and/or KV according to patient size 3. Use of iterative of reconstructive technique Comparisons: None FINDINGS: No focal parenchymal lesion or hemorrhage is identified. There is no midline shift or sulcal effacement. No acute vascular territory infarction is identified. Dominguez-white distinction is preserved. The ventricular system is within normal limits without compression hyd rocephalus. The basal cisterns are well maintained. The visualized portions of the paranasal sinuses and mastoid air cells are well- pneumatized. No acute fractures. IMPRESSION: No acute intracranial abnormality. Electronically signed by: Nova Reyna MD (07/09/2021 7:50 PM) [facility] DICTATED and SIGNED BY: NOVA REYNA MD DATE: 07/09/[id number] 0 Course & Med Decision Making: Course & Med Decision Making Pertinent Labs and Imaging studies reviewed. (See chart for details) See HPI. Alert and oriented x4. Ambulatory steady gait. Speaks in full clear sentences. Abdomen soft and nontender. No extremity edema. Upper lung lobes are clear and lower lung lobes are diminished. Patient has been given 10 of hydralazine without any change in blood pressure. Patient is now vomiting. CT of the head came back normal. Chest x-ray is normal. Her troponin is 40. Patient is placed on nicardipine drip. She will be admitted to the hospital for hypertensive emergency. [] Dragon Disclaimer: Dragon Disclaimer: This electronic medical record was generated, in whole or in part, using a voice recognition dictation system. Departure Departure Impression: Primary Impression: Hypertensive emergency Disposition: ADMITTED INPATIENT Admitting Physician: CHARLEEN Condition: STABLE Referrals: CAM ZHONG (PCP) JOSE ALBERTO PATEL EARRING MAKER Jul 09, 2021 17:32
[2021-07-09 17:48] LABS: BILIRUBIN,URINE NEGATIVE (NEG); CLARITY,URINE CLOUDY; COLOR,URINE YELLOW; NITRITE,URINE NEGATIVE (NEG); PH,URINE 7.5 (<5.0-8.0); PROTEIN,URINE 30 mg/dL (NEG-TRACE)
[2021-07-09 17:55] LABS: BARBITURATES NEG (NEG); BENZODIAZEPINES NEG (NEG); CANNABINOIDS NEG (NEG); COCAINE NEG (NEG); METHADONE NEG (NEG); OPIATES NEG (NEG); PHENCYCLIDINE NEG (NEG)
[2021-07-09 17:56] LABS: BASO # 0.1 x10^3/uL (0.0-0.2); BASO % 1 % (0-3); EOS % 0 % (0-3); HEMATOCRIT 42.9 % (36.0-47.0); HEMOGLOBIN 13.9 g/dL (12.0-15.5); LYMPH # 1.4 x10^3/uL (1.0-4.8); LYMPH % 12 % (24-48); MEAN CORPUSCULAR HEMOGLOBIN 30 pg (25-35); MEAN CORPUSCULAR HGB CONC 32 g/dL (31-37); MEAN CORPUSCULAR VOLUME 93 fL (79-100); MONO # 0.7 x10^3/uL (0.0-1.1); MONO % 6 % (0-9); NEUT # 9.9 x10^3/uL (1.8-7.7); NEUT % 82 % (31-73); PLATELET COUNT 331 x10^3/uL (140-400); RED BLOOD COUNT 4.63 x10^6/uL (3.50-5.40); WHITE BLOOD COUNT 12.1 x10^3/uL (4.0-11.0)
[2021-07-09 17:56] LABS: AMPHETAMINE/METHAMPHETAMINE NEG (NEG)
[2021-07-09] MEDS ORDERED: hydrALAZINE 20 MG/ML VIAL. IVP ONE ×2 (18:00→18:45)
[2021-07-09 18:02] LABS: AMORPHOUS SEDIMENT,UR PRESENT /HPF; BACTERIA,URINE MODERATE /HPF (0-FEW)
[2021-07-09 18:03] LABS: RBC,URINE 0 /HPF (0-2)
[2021-07-09 18:04] LABS: CALCIUM 8.8 mg/dL (8.5-10.1); GFR 73.6; POTASSIUM 3.6 mmol/L (3.5-5.1)
[2021-07-09 18:11] LABS: ALBUMIN 3.5 g/dL (3.4-5.0); ALBUMIN/GLOBULIN RATIO 0.9 (1.0-1.7); TOTAL BILIRUBIN 0.6 mg/dL (0.2-1.0); TOTAL PROTEIN 7.6 g/dL (6.4-8.2)
--- NOTE | 2021-07-09 18:31 | RAD ---
Exam: Chest one view INDICATION: Hypertension TECHNIQUE: Frontal view of the chest Comparisons: 03/23/2019 FINDINGS: Heart is mildly enlarged pulmonary vessels are within normal limits. The lung and pleural spaces are clear. IMPRESSION: No acute pulmonary process. Electronically signed by: Nova Ramirez MD (07/09/2021 6:28 PM) [facility]
[2021-07-09] MEDS ORDERED: ONDANSETRON PF 4 MG/2 ML VIAL. IVP ONE (18:45)
[2021-07-09 19:14] LABS: U PREG PATIENT NEGATIVE (NEG)
[2021-07-09] MEDS ORDERED: ONDANSETRON PF 4 MG/2 ML VIAL. IVP PRN (19:45)
--- NOTE | 2021-07-09 19:53 | RAD ---
Exam: CT head INDICATION: Headache TECHNIQUE: Sequential axial images through the head were obtained without the administration of IV co ntrast. Exposure: One or more of the following in the visualized dose reduction techniques were utilized for this examination: 1. Automated exposure control 2. Adjustment of the MA and/or KV according to patient size 3. Use of iterative of reconstructive technique Comparisons: None FINDINGS: No focal parenchymal lesion or hemorrhage is identified. There is no midline shift or sulcal effaceme nt. No acute vascular territory infarction is identified. Dominguez-white distinction is preserved. The ventricular system is within normal limits without compression hydrocephalus. The basal cisterns are well maintained. The visualized portions of the paranasal sinuses and mastoid air cells are well-pneumatized. No acute fractures. IMPRESSION: No acute intracranial abnormality. Electronically signed by: Noav Ramirez MD (07/09/2021 7:50 PM) [facility]
--- NOTE | 2021-07-09 21:25 | HP ---
DATE OF SERVICE: 07/09/2021 ADMIT DATE: 07/09/2021 CHIEF COMPLAINT: Elevated blood pressure. HISTORY OF PRESENT ILLNESS: The patient is a pleasant 40-year-old female who has been taking her blood pressure meds for several months. She presented to the ER today complaining of elevated blood pressure. She apparently was told not to take them because she is awaiting some testing regarding an adrenal adenoma. Her pressures here in the ER in the 200s. I discussed the case with ER physician. We have placed her on a Cardene drip and I am also going to give her some Lasix. PAST MEDICAL HISTORY: Anxiety, asthma, bronchitis, hypertension, UTI, possible MS, polycystic ovary syndrome, left hip surgery. ALLERGIES: None. FAMILY HISTORY: Diabetes. SOCIAL HISTORY: She does not drink, smoke or take drugs. MEDICATIONS: Reviewed, please refer to the MRAD. REVIEW OF SYSTEMS: GENERAL: No history of weight change, weakness or fevers. SKIN: No bruising, hair changes or rashes. EYES: No blurred, double or loss of vision. NOSE AND THROAT: No history of nosebleeds, hoarseness or sore throat. HEART: No history of palpitations, chest pain or shortness of breath on exertion. LUNGS: Denies cough, hemoptysis, wheezing or shortness of breath. GASTROINTESTINAL: Denies changes in appetite, nausea, vomiting, diarrhea or constipation. GENITOURINARY: No history of frequency, urgency, hesitancy or nocturia. NEUROLOGIC: Denies history of numbness, tingling, tremor or weakness. PSYCHIATRIC: No history of panic, anxiety or depression. ENDOCRINE: No history of heat or cold intolerance, polyuria or polydipsia. EXTREMITIES: Denies muscle weakness, joint pain, pain on walking or stiffness. PHYSICAL EXAMINATION: VITALS: Within normal limits and are stable. Blood pressure is 210/143. GENERAL: No apparent distress. Alert and oriented. HEENT: Normal cephalic atraumatic, external auditory canals are patent EYES: Extraocular muscles are intact, pupils are equally round and reactive to light and accommodation MUSCULOSKELETAL: Well developed, well nourished, good range of motion ENDOCRINE: No thyromegaly was palpated LYMPHATICS: No cervical chain or axillary nodes were noted HEMATOPOIETIC: No bruising NECK: Supple, no JVD, no thyromegaly was noted. LUNGS: Clear to auscultation in all lung valdez without rhonchi or wheezing. HEART: RRR, S1, S2 present. Peripheral pulses intact, no obvious murmurs were noted. ABDOMEN: Soft, nontender. Positive bowel sounds no organomegaly, normal bowel sounds. EXTREMITIES: Without any cyanosis, clubbing, or edema. Pedal pulses intact, Homans sign is negative. NEUROLOGIC: Normal speech, normal tone. A and O x 3, moves all extremities, no obvious focal deficits. PSYCHIATRIC: Normal affect, normal mood. Stable. SKIN: No ulcerations or rashes, good skin turgor, no jaundice. VASCULAR: Good capillary refill, neurovascular bundle appears to be intact. ASSESSMENT AND PLAN: Hypertensive urgency. The patient will be admitted. We will start IV Cardene drip. I am ordering 40 of IV Lasix daily. We also gave her some IV hydralazine. Home meds. Deep venous thrombosis prophylaxis. Full code. Cardiac monitoring. PRITESH/RAJINDER/CANDIS DR: Linda TID: [id number]
[2021-07-09] MEDS: FUROSEMIDE 40 MG/4 ML VIAL. IVP SCH (21:59)
[2021-07-09] MEDS ORDERED: PROP60TA PO (22:11)
[2021-07-09] MEDS ORDERED: AMLO-187 PO (22:11)
[2021-07-09] MEDS ORDERED: ALBUTEROL (22:11)
[2021-07-10] VITALS (24 sets, daily range): BP systolic 130–198; BP diastolic 64–100
--- NOTE | 2021-07-10 06:35 | EKG ---
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
[2021-07-10] MEDS ORDERED: PROCHLORPERAZINE 10 MG/2 ML VIAL. IV ONE (07:30)
[2021-07-10] MEDS ORDERED: SPIR50TA4 PO ×2 (07:51→15:47)
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
[2021-07-10] MEDS ORDERED: CABE0.5T PO (08:23)
[2021-07-10] MEDS ORDERED: ALBUTEROL SULFATE 2.5 MG/3 ML NEBU. NEB PRN (08:30)
[2021-07-10] MEDS: FUROSEMIDE 40 MG/4 ML VIAL. IVP SCH (09:28)
[2021-07-10] MEDS: SPIRONOLACTONE 25 MG TABLET PO SCH (09:29)
[2021-07-10] MEDS: PROPRANOLOL ER 60 MG CAP.SA.24H. PO SCH ×2 (09:29→21:05)
--- NOTE | 2021-07-10 10:16 | PDOC2 ---
WADESAMMI Riley CHIEF JAILER 07/10/21 1016: CARDIAC CONSULT DATE OF CONSULT Date of Consult DATE: 07/10/21 TIME: 10:09 REASON FOR CONSULT Reason for Consult: HTN emergency REFERRING PHYSICIAN Referring Physician: Anthony SOURCE Source: Chart review, Patient HISTORY OF PRESENT ILLNESS HISTORY OF PRESENT ILLNESS This is a pleasant 40 yo female admitted for complains of high blood pressure. She was having throbbing BHATIA at home and felt like her BP was high. She did not feel good and was nauseated. No SOA and no CP. She ran out of refill for 3 BP meds 1.5 months ago. She stopped it at some point as she was told that she has to stop some of her medications for a test in re to her pituitary adenoma. She has not been able to obtain her meds. Her BP is now better with cardene. PAST MEDICAL HISTORY Cardiovascular: HTN Pulmonary: No pertinent hx CENTRAL NERVOUS SYSTEM: Other (pituitary adenoma) GI: No pertinent hx Heme/Onc: No pertinent hx Hepatobiliary: No pertinent hx Psych: No pertinent hx Musculoskeletal: Osteoarthritis Rheumatologic: No pertinent hx Infectious disease: No pertinent hx ENT: No pertinent hx Renal/: No pertinent hx Endocrine: Other (pituitary adenoma) Dermatology: No pertinent hx PAST SURGICAL HISTORY Past Surgical History: Total hip replacement (left) FAMILY HISTORY Family History: Adopted SOCIAL HISTORY Smoke: No ALCOHOL: none Drugs: None Lives: with Family CURRENT MEDICATIONS CURRENT MEDICATIONS Current Medications Medications (Trade) Dose Ordered Sig/Devin Route PRN Reason Start Time Stop Time Status Last Admin Dose Admin Aspirin (Addie Aspirin) 325 mg 1X ONCE PO 07/09/21 17:30 07/09/21 17:31 DC 07/09/21 17:41 Hydralazine HCl (Apresoline Inj) 5 mg 1X ONCE IVP 07/09/21 18:00 07/09/21 18:01 DC 07/09/21 18:19 Ondansetron HCl (Zofran) 4 mg 1X ONCE IVP 07/09/21 18:45 07/09/21 18:46 DC 07/09/21 18:41 Hydralazine HCl (Apresoline Inj) 5 mg 1X ONCE IVP 07/09/21 18:45 07/09/21 18:46 DC 07/09/21 18:44 Nicardipine HCl 50 mg/Sodium Chloride 250 ml @ 25 mls/hr CONT PRN IV PER PROTOCOL 07/09/21 19:30 07/10/21 05:02 Furosemide (Lasix) 40 mg DAILY IVP 07/09/21 21:00 07/10/21 09:28 Prochlorperazine Edisylate (Compazine) 10 mg 1X ONCE IV 07/10/21 07:30 07/10/21 07:57 DC 07/10/21 08:15 Propranolol HCl (Inderal La) 60 mg BID PO 07/10/21 09:00 07/10/21 09:29 Spironolactone (Aldactone) 50 mg DAILY PO 07/10/21 09:00 07/10/21 09:29 ALLERGIES ALLERGIES: Coded Allergies: No Known Drug Allergies (Unverified , 02/21/14) ROS Review of System 14 point ROS evaluated with pertinent positives noted per HPI PHYSICAL EXAM General: Alert, Oriented X3, Cooperative, No acute distress HEENT: Atraumatic, Mucous membr. moist/pink Lungs: Clear to auscultation, Normal air movement Heart: Regular rate (SR), Normal S1, Normal S2, No murmurs Abdomen: Soft, No tenderness Extremities: No cyanosis Skin: No breakdown, No significant lesion Neuro: Normal speech, Sensation intact Psych/Mental Status: Mental status NL, Mood NL MUSCULOSKELETAL: Full range of motion without pain VITALS/I&O VITALS/I&O: Vital Signs Date Time Temp Pulse Resp B/P (MAP) Pulse Ox O2 Delivery O2 Flow Rate FiO2 07/10/21 09:29 83 161/78 07/10/21 09:00 16 95 Room Air 07/10/21 08:00 99.0 99.0 I & O 07/09/21 07/09/21 07/10/21 15:00 23:00 07:00 Intake Total 200 ml 595 ml Output Total 800 ml Balance -600 ml 595 ml LABS Lab: Laboratory Tests Test 07/09/21 17:40 07/09/21 17:47 07/09/21 20:15 07/09/21 23:35 Urine Collection Type Unknown Urine Color Yellow Urine Clarity Cloudy Urine pH 7.5 (<5.0-8.0) Urine Specific [place] 1.020 (1.000-1.030) Urine Protein 30 mg/dL (NEG-TRACE) Urine Glucose (UA) Negative mg/dL (NEG) Urine Ketones (Stick) Negative mg/dL (NEG) Urine Blood Negative (NEG) Urine Nitrite Negative (NEG) Urine Bilirubin Negative (NEG) Urine Urobilinogen Dipstick 1.0 mg/dL (0.2 mg/dL) Urine Leukocyte Esterase Negative (NEG) Urine RBC 0 /HPF (0-2) Urine WBC 5-10 /HPF (0-4) Urine Squamous Epithelial Cells Mod /LPF Urine Amorphous Sediment Present /HPF Urine Bacteria Moderate /HPF (0-FEW) Urine Test Negative (NEG) Urine Opiates Screen Neg (NEG) Urine Methadone Screen Neg (NEG) Urine Barbiturates Neg (NEG) Urine Phencyclidine Screen Neg (NEG) Urine Amphetamine/Methamphetamine Neg (NEG) Urine Benzodiazepines Screen Neg (NEG) Urine Cocaine Screen Neg (NEG) Urine Cannabinoids Screen Neg (NEG) Urine Ethyl Alcohol Neg (NEG) White Blood Count 12.1 x10^3/uL (4.0-11.0) H Red Blood Count 4.63 x10^6/uL (3.50-5.40) Hemoglobin 13.9 g/dL (12.0-15.5) Hematocrit 42.9 % (36.0-47.0) Mean Corpuscular Volume 93 fL (79-100) Mean Corpuscular Hemoglobin 30 pg (25-35) Mean Corpuscular Hemoglobin Concent 32 g/dL (31-37) Red Cell Distribution Width 14.0 % (11.5-14.5) Platelet Count 331 x10^3/uL (140-400) Neutrophils (%) (Auto) 82 % (31-73) H Lymphocytes (%) (Auto) 12 % (24-48) L Monocytes (%) (Auto) 6 % (0-9) Eosinophils (%) (Auto) 0 % (0-3) Basophils (%) (Auto) 1 % (0-3) Neutrophils # (Auto) 9.9 x10^3/uL (1.8-7.7) H Lymphocytes # (Auto) 1.4 x10^3/uL (1.0-4.8) Monocytes # (Auto) 0.7 x10^3/uL (0.0-1.1) Eosinophils # (Auto) 0.0 x10^3/uL (0.0-0.7) Basophils # (Auto) 0.1 x10^3/uL (0.0-0.2) Sodium Level 139 mmol/L (136-145) Potassium Level 3.6 mmol/L (3.5-5.1) Chloride Level 104 mmol/L (98-107) Carbon Dioxide Level 28 mmol/L (21-32) Anion Gap 7 (6-14) Blood Urea Nitrogen 18 mg/dL (7-20) Creatinine 1.0 mg/dL (0.6-1.0) Estimated GFR (Cockcroft-Gault) 73.6 BUN/Creatinine Ratio 18 (6-20) Glucose Level 106 mg/dL (70-99) H Calcium Level 8.8 mg/dL (8.5-10.1) Total Bilirubin 0.6 mg/dL (0.2-1.0) Aspartate Amino Transferase (AST) 31 U/L (15-37) Alanine Aminotransferase (ALT) 83 U/L (14-59) H Alkaline Phosphatase 94 U/L (46-116) Troponin I High Sensitivity 40 ng/L (4-50) 41 ng/L (4-50) 39 ng/L (4-50) MA-Oti-A-Type Natriuretic Peptide 67 pg/mL (0-124) Total Protein 7.6 g/dL (6.4-8.2) Albumin 3.5 g/dL (3.4-5.0) Albumin/Globulin Ratio 0.9 (1.0-1.7) L Lipase 57 U/L (73-393) L Laboratory Tests 07/09/21 17:47 Laboratory Tests 07/09/21 17:47 ASSESSMENT/PLAN ASSESSMENT/PLAN 1. HTN urgency: better with cardene. Mainly due to missed meds 2. Pituitary adenoma: followed by outpt breeding technician 3. Morbid obesity Recommendations 1. Titrate off cardene. Continue home propranolol and aldactone. Add norvasc. 2. Anticipate DC this evening once BP is better controlled. 3. TSH and FLP GILMER MUELLER MD 07/10/21 1644: CARDIAC CONSULT ASSESSMENT/PLAN ASSESSMENT/PLAN Patient seen and examined. Agree with GENERAL CAR YARD SUPERVISOR's assessment and plan. Blood pressure better controlled since admission. Continue to titrate Cardene off as tolerated. Agree with adding Norvasc for be tter blood pressure control. Thank you for your consultation SAMMI OLVERA APRN Jul 10, 2021 10:16 GILMER MUELLER MD Jul 10, 2021 16:44
[2021-07-10 11:02] LABS: CHOLESTEROL/HDL RATIO 4.9
[2021-07-10 11:03] LABS: HEMATOCRIT 45.8 % (36.0-47.0); RED BLOOD COUNT 4.91 x10^6/uL (3.50-5.40); RED CELL DISTRIBUTION WIDTH 14.2 % (11.5-14.5); WHITE BLOOD COUNT 15.6 x10^3/uL (4.0-11.0)
[2021-07-10 11:18] LABS: CALCIUM 9.3 mg/dL (8.5-10.1); CREATININE 1.2 mg/dL (0.6-1.0); GFR 59.6; MAGNESIUM 2.1 mg/dL (1.8-2.4); PHOSPHORUS 3.7 mg/dL (2.6-4.7); POTASSIUM 3.1 mmol/L (3.5-5.1)
[2021-07-10] MEDS ORDERED: POTASSIUM BICARB 20 MEQ EFFERVESCENT TABLET. PO ONE (13:00)
[2021-07-10] MEDS: hydrALAZINE 20 MG/ML VIAL. IVP PRN (15:27)
[2021-07-10] MEDS ORDERED: AMLO-187 PO (15:47)
[2021-07-10] MEDS ORDERED: PROP60TA PO (15:47)
--- NOTE | 2021-07-10 15:53 | NUR ---
SS following for discharge planning. SS reviewed pt chart and discussed with pt RN. Pt is from home and is currently on room air. Cardiology consulted. Discharge plan is currently to home when medically ready for discharge. SS will continue to follow for discharge planning.
[2021-07-10] MEDS ORDERED: ATORVASTATIN CALCIUM 20 MG TABLET PO SCH (21:00)
[2021-07-11 07:00] VITALS: BP 188/116
[2021-07-11] MEDS: PROPRANOLOL ER 60 MG CAP.SA.24H. PO SCH (08:19)
[2021-07-11] MEDS: SPIRONOLACTONE 25 MG TABLET PO SCH (08:20)
[2021-07-11 08:22] VITALS: BP 188/116
[2021-07-11] MEDS: hydrALAZINE 20 MG/ML VIAL. IVP PRN (08:22)
--- NOTE | 2021-07-11 09:33 | PDOC ---
SAMMI OLVERA HOME IMPROVEMENT CONTRACTOR 07/11/21 0932: CARDIO Progress Notes Date and Time Date of Service 07/11/2021 Time of Evaluation 0920 Subjective Subjective: No Chest Pain, No shortness of breath, No Palpitations Vitals Vitals Vital Signs Date Time Temp Pulse Resp B/P (MAP) Pulse Ox O2 Delivery O2 Flow Rate FiO2 07/11/21 08:22 68 188/116 07/11/21 07:00 97.9 18 92 97.9 07/10/21 23:00 Room Air Weight Weight [ ] Input and Output Intake and Output Intake and Output 07/11/21 07:00 Intake Total 920 ml Output Total 1000 ml Balance -80 ml Intake Oral 920 ml Output Urine Total 1000 ml # Voids 2 Laboratory Labs Laboratory Tests Test 07/10/21 10:00 White Blood Count 15.6 x10^3/uL (4.0-11.0) Red Blood Count 4.91 x10^6/uL (3.50-5.40) Hemoglobin 15.0 g/dL (12.0-15.5) Hematocrit 45.8 % (36.0-47.0) Mean Corpuscular Volume 93 fL (79-100) Mean Corpuscular Hemoglobin 31 pg (25-35) Mean Corpuscular Hemoglobin Concent 33 g/dL (31-37) Red Cell Distribution Width 14.2 % (11.5-14.5) Platelet Count 357 x10^3/uL (140-400) Sodium Level 139 mmol/L (136-145) Potassium Level 3.1 mmol/L (3.5-5.1) Chloride Level 102 mmol/L (98-107) Carbon Dioxide Level 28 mmol/L (21-32) Anion Gap 9 (6-14) Blood Urea Nitrogen 19 mg/dL (7-20) Creatinine 1.2 mg/dL (0.6-1.0) Estimated GFR (Cockcroft-Gault) 59.6 Glucose Level 136 mg/dL (70-99) Calcium Level 9.3 mg/dL (8.5-10.1) Phosphorus Level 3.7 mg/dL (2.6-4.7) Magnesium Level 2.1 mg/dL (1.8-2.4) Triglycerides Level 104 mg/dL (0-150) Cholesterol Level 244 mg/dL (0-200) LDL Cholesterol, Calculated 173 mg/dL (0-100) VLDL Cholesterol, Calculated 21 mg/dL (0-40) Non-HDL Cholesterol Calculated 194 mg/dL (0-129) HDL Cholesterol 50 mg/dL (40-60) Cholesterol/HDL Ratio 4.9 Thyroid Stimulating Hormone (TSH) 0.800 uIU/mL (0.358-3.74) Microbiology Micro Microbiology 07/09/21 Urine Culture - Final, Complete Physical Exam HEENT: Neck Supple W Full Motion Chest: Symmetric LUNGS: Clear to Auscultation Heart: S1S2, RRR Abdomen: Soft N/T Extremities: No Calf Tenderness Neurology: alert, oriented, follow commands Assessment Assessment 1. HTN urgency:Mainly due to missed meds. Better 2. Pituitary adenoma: followed by outpt meat loiner 3. Morbid obesity 4, HLP Recommendations 1. Continue current BP regimen 2. Anticipate DC today 3. Start statin Justicifation of Admission Dx: Justifications for Admission: Justification of Admission Dx: Yes GILMER MUELLER MD 07/11/21 1456: CARDIO Progress Notes Assessment Assessment Patient seen and examined. Agree with EVENT PLANNING MANAGER's assessment and plan. Blood pressure better controlled Continue current medical regimen SAMMI OLVERA APRN Jul 11, 2021 09:32 GILMER MUELLER MD Jul 11, 2021 14:56
[2021-07-11] MEDS ORDERED: ATOR20TA58 PO (10:49)
--- NOTE | 2021-07-11 10:53 | NUR ---
SW following. Discussed with RN, pt from home, room air, cardiac diet. RN advised no SW needs. Discharge order for home with self care.
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
== END 2021-07-11 14:28 | disposition home or self-care (01) | DRG 305 ==
LOC: ER 16:39 → 1 WEST ICU 19:23 → 5 NORTH 07-10 16:20
PROVIDERS: ADMIT Internal Medicine; ATTEND Internal Medicine
DX: I16.1 Hypertensive emergency (principal); Z68.42 Body mass index [BMI] 45.0-49.9, adult; D35.2 Benign neoplasm of pituitary gland; E28.2 Polycystic ovarian syndrome; E66.01 Morbid (severe) obesity due to excess calories; E78.5 Hyperlipidemia, unspecified; F41.9 Anxiety disorder, unspecified; I10 Essential (primary) hypertension; J45.909 Unspecified asthma, uncomplicated; Z83.3 Family history of diabetes mellitus; Z87.820 Personal history of traumatic brain injury; Z96.642 Presence of left artificial hip joint; M19.90 Unspecified osteoarthritis, unspecified site
CPT/HCPCS: 36415; 70450; 71045; 80048; 80053; 80061; 80307; 81001; 81025; 83690; 83735; 83880; 84100; 84443; 84484; 85025; 85027; 87086; 93005; 96365; 96366; 96375; 96376; J0360; J0780; J1940; J2405; J3490; J7050; 99285-25; G0378; J7030

== ENCOUNTER 2021-12-29 00:10 | Inpatient (IN) | payer MEDICARE, MEDICAID ==
[2021-12-29] VITALS (33 sets, daily range): BP systolic 131–178; BP diastolic 58–108
[~2021-12-29] VITALS: Ht 167.6 cm; Wt 123.0 kg
[~2021-12-29 00:10] MED LIST changes: +ALBUTEROL; +AMLO-187 PO; +ATOR20TA58 PO; +CABE0.5T PO; +PROP60TA PO; +SPIR50TA4 PO
--- NOTE | 2021-12-29 00:48 | PHYS DOC ---
Past Medical History Past Medical History: Anxiety, Asthma, Bronchitis, Hypertension, UTI, Other Additional Past Medical Histor: PITUITARY ADENOMA Past Surgical History: Hip Replacement Additional Past Surgical Histo: L hip sx Smoking Status: Never Smoker Alcohol Use: None Drug Use: None General Adult EDM: Chief Complaint: CHEST PAIN HPI: HPI: Patient is a 41 year old female who presented to ER for evaluation of chest pain with nausea vomiting since 5 PM today . Patient has history hypertension. Patient denies any cough or fever. Patient said she did not take her blood pressure medication tonight. Patient denied any abdominal pain. She does not have any history of CAD. NO HISTORY OF PE. Patient denies any recent travel or operation. Review of Systems: Review of Systems: Constitutional: Denies fever or chills. [] Eyes: Denies change in visual acuity. [] HENT: Denies nasal congestion or sore throat. [] Respiratory: Denies cough or shortness of breath. [] Cardiovascular: Positive for chest pain, no edema. [] GI: Denies abdominal pain, POSITIVE FOR nausea, vomiting, no bloody stools or diarrhea. [] : Denies dysuria. [] Musculoskeletal: Denies back pain or joint pain. [] Integument: Denies rash. [] Neurologic: Denies headache, focal weakness or sensory changes. [] Endocrine: Denies polyuria or polydipsia. [] Lymphatic: Denies swollen glands. [] Psychiatric: Denies depression or anxiety. [] Heart Score: C/O Chest Pain: Yes HEART Score for Chest Pain: HEART Score for Chest Pain Response (Comments) Value History Moderately Suspicious 1 ECG Nonspecific Repolarizatio 1 Age < 45 0 Risk Factors 1 or 2 Risk Factors 1 Troponin >1-<3x Normal Limit 1 Total 4 Risk Factors: Risk Factors: DM, Current or recent (<one month) smoker, HTN, HLP, family history of CAD, obesity. Risk Scores: Score 0 - 3: 2.5% MACE over next 6 weeks - Discharge Home Score 4 - 6: 20.3% MACE over next 6 weeks - Admit for Clinical Observation Score 7 - 10: 72.7% MACE over next 6 weeks - Early Invasive Strategies Allergies: Allergies: Allergies Coded Allergies Type Severity Reaction Last Updated Verified No Known Drug Allergies 02/21/14 No Physical Exam: PE: Constitutional: Well developed, well nourished, no acute distress, non-toxic appearance. OBESE. HENT: Normocephalic, atraumatic, bilateral external ears normal, oropharynx mois t, no oral exudates, nose normal. [] Eyes: PERRLA, EOMI, conjunctiva normal, no discharge. [] Neck: Normal range of motion, no tenderness, supple, no stridor. [] Cardiovascular:Heart rate regular rhythm, no murmur [] Lungs & Thorax: Bilateral breath sounds clear to auscultation [] Abdomen: Bowel sounds normal, soft, no tenderness, no masses, no pulsatile masses. [] Skin: Warm, dry, no erythema, no rash. [] Back: No tenderness, no CVA tenderness. [] Extremities: No tenderness, no cyanosis, no clubbing, ROM intact, no edema. [] Neurologic: Alert and oriented X 3, normal motor function, normal sensory function, no focal deficits noted. [] Psychologic: Affect normal, judgement normal, mood normal. [] Current Patient Data: Labs: Laboratory Tests Test 12/29/21 00:52 White Blood Count 11.7 x10^3/uL Red Blood Count 4.80 x10^6/uL Hemoglobin 14.6 g/dL Hematocrit 43.7 % Mean Corpuscular Volume 91 fL Mean Corpuscular Hemoglobin 30 pg Mean Corpuscular Hemoglobin Concent 33 g/dL Red Cell Distribution Width 14.8 % Platelet Count 339 x10^3/uL Neutrophils (%) (Auto) 85 % Lymphocytes (%) (Auto) 10 % Monocytes (%) (Auto) 5 % Eosinophils (%) (Auto) 0 % Basophils (%) (Auto) 1 % Neutrophils # (Auto) 9.9 x10^3/uL Lymphocytes # (Auto) 1.1 x10^3/uL Monocytes # (Auto) 0.5 x10^3/uL Eosinophils # (Auto) 0.0 x10^3/uL Basophils # (Auto) 0.1 x10^3/uL Sodium Level 138 mmol/L Potassium Level 3.9 mmol/L Chloride Level 102 mmol/L Carbon Dioxide Level 25 mmol/L Anion Gap 11 Blood Urea Nitrogen 9 mg/dL Creatinine 1.3 mg/dL Estimated GFR (Cockcroft-Gault) 54.1 BUN/Creatinine Ratio 7 Glucose Level 133 mg/dL Calcium Level 9.5 mg/dL Magnesium Level 1.7 mg/dL Total Bilirubin 0.8 mg/dL Aspartate Amino Transf (AST/SGOT) 16 U/L Alanine Aminotransferase (ALT/SGPT) 27 U/L Alkaline Phosphatase 93 U/L Troponin I High Sensitivity 84 ng/L LH-Kvq-O-Type Natriuretic Peptide 113 pg/mL Total Protein 7.8 g/dL Albumin 3.7 g/dL Albumin/Globulin Ratio 0.9 Lipase 47 U/L Current Medications Medications (Trade) Dose Ordered Sig/Devin Route PRN Reason Start Time Stop Time Status Last Admin Dose Admin Hydralazine HCl (Apresoline Inj) 20 mg 1X ONCE IVP 12/29/21 01:15 12/29/21 01:16 DC 12/29/21 01:31 Ondansetron HCl (Zofran) 4 mg 1X ONCE IVP 12/29/21 01:15 12/29/21 01:17 DC 12/29/21 01:31 Magnesium Sulfate/ Dextrose 100 ml @ 100 mls/hr 1X ONCE IV 12/29/21 01:45 12/29/21 02:44 DC 12/29/21 02:28 Metoprolol Tartrate (Lopressor Vial) 5 mg 1X ONCE IVP 12/29/21 03:15 12/29/21 03:16 Ondansetron HCl (Zofran) 4 mg PRN Q8HRS PRN IVP NAUSEA/VOMITING 12/29/21 03:15 12/30/21 03:14 Morphine Sulfate (Morphine Sulfate) 4 mg PRN Q2HR PRN IVP PAIN 12/29/21 03:15 12/30/21 03:14 EKG: EKG: EKG was done at 00 34, heart rate of 86 bpm, normal sinus rhythm, no ST segment elevation. Radiology/Procedures: Radiology/Procedures: Chest x-ray did not show any acute problem Course & Med Decision Making: Course & Med Decision Making Pertinent Labs and Imaging studies reviewed. (See chart for details) Patient is a 40-year-old female who presented to ER due to chest pain with nausea vomiting. Patient has history of hypertension, she did not take her blo od pressure medication tonight due to nausea vomiting. Patient blood pressure was elevated. Patient was given medication in ER for nausea and hypertension. Symptom improved. Her magnesium level was low, patient was given magnesium replacement. Cardiac enzyme came back elevated. Patient will be admitted for further evaluation and treatment Dragon Disclaimer: Dragon Disclaimer: This electronic medical record was generated, in whole or in part, using a voice recognition dictation system. Departure Departure Impression: Primary Impression: Hypertensive urgency Additional Impression: Chest pain Disposition: ADMITTED INPATIENT Admitting Physician: CHARLEEN (DR. PARMAR) Condition: IMPROVED Referrals: CAM ZHONG (PCP) TIMI CHUN DO December 29, 2021 00:48
[2021-12-29 00:56] LABS: BASO # 0.1 x10^3/uL (0.0-0.2); BASO % 1 % (0-3); EOS % 0 % (0-3); HEMATOCRIT 43.7 % (36.0-47.0); HEMOGLOBIN 14.6 g/dL (12.0-15.5); LYMPH # 1.1 x10^3/uL (1.0-4.8); LYMPH % 10 % (24-48); MEAN CORPUSCULAR HEMOGLOBIN 30 pg (25-35); MEAN CORPUSCULAR HGB CONC 33 g/dL (31-37); MEAN CORPUSCULAR VOLUME 91 fL (79-100); MONO # 0.5 x10^3/uL (0.0-1.1); MONO % 5 % (0-9); NEUT # 9.9 x10^3/uL (1.8-7.7); NEUT % 85 % (31-73); PLATELET COUNT 339 x10^3/uL (140-400); RED CELL DISTRIBUTION WIDTH 14.8 % (11.5-14.5); WHITE BLOOD COUNT 11.7 x10^3/uL (4.0-11.0)
[2021-12-29 01:08] LABS: CALCIUM 9.5 mg/dL (8.5-10.1); CREATININE 1.3 mg/dL (0.6-1.0); GFR 54.1; POTASSIUM 3.9 mmol/L (3.5-5.1)
[2021-12-29 01:14] LABS: ALBUMIN 3.7 g/dL (3.4-5.0); ALBUMIN/GLOBULIN RATIO 0.9 (1.0-1.7); MAGNESIUM 1.7 mg/dL (1.8-2.4); TOTAL BILIRUBIN 0.8 mg/dL (0.2-1.0); TOTAL PROTEIN 7.8 g/dL (6.4-8.2)
[2021-12-29] MEDS ORDERED: hydrALAZINE 20 MG/ML VIAL. IVP ONE (01:15)
[2021-12-29] MEDS ORDERED: ONDANSETRON PF 4 MG/2 ML VIAL. IVP ONE (01:15)
[2021-12-29] MEDS ORDERED: MAGNESIUM SULFATE 1GM 100 ML IV ONE (01:45)
[2021-12-29] MEDS ORDERED: ONDANSETRON PF 4 MG/2 ML VIAL. IVP PRN ×2 (03:15→06:45)
[2021-12-29] MEDS ORDERED: METOPROLOL IV PUSH 5 MG/5 ML VIAL. IVP ONE (03:15)
[2021-12-29] MEDS ORDERED: MORPHINE SULFATE 4 MG/ML INJ. IVP PRN (03:15)
[2021-12-29] MEDS ORDERED: METOCLOPRAMIDE HCL 10 MG/2 ML VIAL. IVP ONE (03:30)
[2021-12-29 03:47] LABS: BACTERIA,URINE FEW /HPF (0-FEW); RBC,URINE 20-40 /HPF (0-2)
--- NOTE | 2021-12-29 04:44 | RAD ---
INDICATION: Reason: CHEST PAIN / Spl. Instructions: / History: COMPARISON: June 2021 FINDINGS: Frontal view of chest obtained. Enlarged cardiomediastinal silhouette. Left lung base is obscured by the overlying cardiac silhouette. No definite consolidation elsewhere in the lungs. IMPRESSION: * Enlarged cardiac mediastinal silhouette is again seen with obscuration of the left lung base but n o definite consolidation elsewhere in lungs. Electronically signed by: Marcos William MD (12/29/2021 4:41 AM) [id number]
--- NOTE | 2021-12-29 05:50 | EKG ---
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
--- NOTE | 2021-12-29 05:51 | EKG ---
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
[2021-12-29] MEDS ORDERED: ACETAMINOPHEN 325 MG TABLET. PO PRN (06:45)
[2021-12-29] MEDS ORDERED: traMADol 50 MG TABLET PO PRN (06:45)
[2021-12-29] MEDS ORDERED: CABERGOLINE 0.5 MG PO SCH (09:00)
[2021-12-29] MEDS: SPIRONOLACTONE 25 MG TABLET PO SCH (09:19)
[2021-12-29] MEDS: PROPRANOLOL 40 MG TABLET. PO SCH ×2 (09:20→20:59)
--- NOTE | 2021-12-29 09:20 | PDOC2 ---
JSOHUA CANNON JESSICA 12/29/21 0920: CARDIAC CONSULT DATE OF CONSULT Date of Consult DATE: 12/29/21 TIME: 09:08 REASON FOR CONSULT Reason for Consult: Chest pain REFERRING PHYSICIAN Referring Physician: Dr. Chu SOURCE Source: Chart review, Patient HISTORY OF PRESENT ILLNESS HISTORY OF PRESENT ILLNESS This is a 41 yo female who presented secondary to chest pain. Blood pressure noted to be significantly elevated. Patient reports she began having dull aching in her central chest yesterday evening when she was cleaning out her care. No associated dizziness, diaphoresis, or nausea/vomiting. [place] slightly short of breath. Pain did not radiated. She went inside and took SL nitro and pain seemed to improved. She then decided to come to the ED for further evaluation and treatment. Blood pressure significantly elevated upon arrival. Was initiated Cardene gtt. Chest pressure seemed to resolved with blood pressure control. No prior history of CAD. Follows with [facility] sample maker original, Dr. Granados. No recent stress test or echocardiogram. She does report that she has been out of her amlodipine for some time. Cannot tell me weeks or months, but "some time". PAST MEDICAL HISTORY Past Medical History Cardiovascular: HTN Pulmonary: No pertinent hx CENTRAL NERVOUS SYSTEM: Other (pituitary adenoma) GI: No pertinent hx Heme/Onc: No pertinent hx Hepatobiliary: No pertinent hx Psych: No pertinent hx Musculoskeletal: Osteoarthritis Rheumatologic: No pertinent hx Infectious disease: No pertinent hx ENT: No pertinent hx Renal/: No pertinent hx Endocrine: Other (pituitary adenoma) Dermatology: No pertinent hx PAST SURGICAL HISTORY Past Surgical History Total hip replacement (left) FAMILY HISTORY Family History: Adopted SOCIAL HISTORY Social History Smoke: No ALCOHOL: none Drugs: None Lives: Alone CURRENT MEDICATIONS CURRENT MEDICATIONS Current Medications Medications (Trade) Dose Ordered Sig/Devin Route PRN Reason Start Time Stop Time Status Last Admin Dose Admin Hydralazine HCl (Apresoline Inj) 20 mg 1X ONCE IVP 12/29/21 01:15 12/29/21 01:16 DC 12/29/21 01:31 Ondansetron HCl (Zofran) 4 mg 1X ONCE IVP 12/29/21 01:15 12/29/21 01:17 DC 12/29/21 01:31 Magnesium Sulfate/ Dextrose 100 ml @ 100 mls/hr 1X ONCE IV 12/29/21 01:45 12/29/21 02:44 DC 12/29/21 02:28 Metoprolol Tartrate (Lopressor Vial) 5 mg 1X ONCE IVP 12/29/21 03:15 12/29/21 03:16 DC 12/29/21 03:33 Metoclopramide HCl (Reglan Vial) 10 mg 1X ONCE IVP 12/29/21 03:30 12/29/21 03:31 DC 12/29/21 03:31 Nicardipine HCl 50 mg/Sodium Chloride 250 ml @ 25 mls/hr CONT PRN IV PER PROTOCOL 12/29/21 04:30 12/29/21 04:33 ALLERGIES ALLERGIES: Coded Allergies: No Known Drug Allergies (Unverified , 02/21/14) ROS Review of System 14 point ROS evaluated with pertinent positives noted per HPI PHYSICAL EXAM PHYSICAL EXAM General: Alert, Oriented X3, Cooperative, No acute distress HEENT: Atraumatic, Mucous membr. moist/pink Lungs: Clear to auscultation, Normal air movement Heart: Regular rate (SR), Normal S1, Normal S2, No murmurs Abdomen: Soft, No tenderness Extremities: No cyanosis Skin: No breakdown, No significant lesion Neuro: Normal speech, Sensation intact Psych/Mental Status: Mental status NL, Mood NL MUSCULOSKELETAL: Full range of motion without pain VITALS/I&O VITALS/I&O: Vital Signs Date Time Temp Pulse Resp B/P (MAP) Pulse Ox O2 Delivery O2 Flow Rate FiO2 12/29/21 06:45 99 26 140/84 95 Room Air 12/29/21 05:15 99.3 99.3 I & O 12/28/21 12/28/21 12/29/21 14:59 22:59 06:59 Intake Total 100 ml Balance 100 ml LABS Lab: Laboratory Tests Test 12/29/21 00:52 12/29/21 03:28 12/29/21 03:39 12/29/21 07:50 White Blood Count 11.7 x10^3/uL (4.0-11.0) H Red Blood Count 4.80 x10^6/uL (3.50-5.40) Hemoglobin 14.6 g/dL (12.0-15.5) Hematocrit 43.7 % (36.0-47.0) Mean Corpuscular Volume 91 fL (79-100) Mean Corpuscular Hemoglobin 30 pg (25-35) Mean Corpuscular Hemoglobin Concent 33 g/dL (31-37) Red Cell Distribution Width 14.8 % (11.5-14.5) H Platelet Count 339 x10^3/uL (140-400) Neutrophils (%) (Auto) 85 % (31-73) H Lymphocytes (%) (Auto) 10 % (24-48) L Monocytes (%) (Auto) 5 % (0-9) Eosinophils (%) (Auto) 0 % (0-3) Basophils (%) (Auto) 1 % (0-3) Neutrophils # (Auto) 9.9 x10^3/uL (1.8-7.7) H Lymphocytes # (Auto) 1.1 x10^3/uL (1.0-4.8) Monocytes # (Auto) 0.5 x10^3/uL (0.0-1.1) Eosinophils # (Auto) 0.0 x10^3/uL (0.0-0.7) Basophils # (Auto) 0.1 x10^3/uL (0.0-0.2) Sodium Level 138 mmol/L (136-145) Potassium Level 3.9 mmol/L (3.5-5.1) Chloride Level 102 mmol/L (98-107) Carbon Dioxide Level 25 mmol/L (21-32) Anion Gap 11 (6-14) Blood Urea Nitrogen 9 mg/dL (7-20) Creatinine 1.3 mg/dL (0.6-1.0) H Estimated GFR (Cockcroft-Gault) 54.1 BUN/Creatinine Ratio 7 (6-20) Glucose Level 133 mg/dL (70-99) H Calcium Level 9.5 mg/dL (8.5-10.1) Magnesium Level 1.7 mg/dL (1.8-2.4) L Total Bilirubin 0.8 mg/dL (0.2-1.0) Aspartate Amino Transferase (AST) 16 U/L (15-37) Alanine Aminotransferase (ALT) 27 U/L (14-59) Alkaline Phosphatase 93 U/L (46-116) Troponin I High Sensitivity 84 ng/L (4-50) H 73 ng/L (4-50) H 106 ng/L (4-50) H XU-Kdz-D-Type Natriuretic Peptide 113 pg/mL (0-124) Total Protein 7.8 g/dL (6.4-8.2) Albumin 3.7 g/dL (3.4-5.0) Albumin/Globulin Ratio 0.9 (1.0-1.7) L Lipase 47 U/L (73-393) L Urine Collection Type Unknown Urine Color (Auto) Light yellow Urine Turbidity Clear Urine pH (Auto) 7.5 (<5.0-8.0) Urine Specific [place] 1.015 (1.000-1.030) Urine Protein (Auto) Negative mg/dL (Negative) Urine Glucose (Auto)(UA) Negative mg/dL (Negative) Urine Ketones (Auto) Negative mg/dL (Negative) Urine Blood (Auto) Large (Negative) Urine Nitrite Negative (Negative) Urine Bilirubin (Auto) Negative (Negative) Urine Urobilinogen (Auto) Normal mg/dL (Normal) Urine Leukocyte Esterase (Auto) Negative (Negative) Urine RBC 20-40 /HPF (0-2) Urine WBC 1-4 /HPF (0-4) Urine Squamous Epithelial Cells Mod /LPF Urine Bacteria Few /HPF (0-FEW) Urine Mucus Mod /LPF Laboratory Tests 12/29/21 00:52 Laboratory Tests 12/29/21 00:52 ECHOCARDIOGRAM ECHOCARDIOGRAM <Conclusion> The left ventricular systolic function is normal. The Ejection Fraction is 60-65%. There is normal LV segmental wall motion. There is no evidence of significant pericardial effusion. DATE: 11/04/17 1017 STRESS TEST STRESS TEST Conclusion 1. Regadenoson cardioisotope stress test did not show any evidence of ischemia or infarct. 2. Normal left ventricular systolic function with ejection fraction calculated at 55%. 3. Low risk for cardiac events DATE: 01/14/18 1147 ASSESSMENT/PLAN ASSESSMENT/PLAN 1. Chest pain, mixed featuers 2. Hypertensive urgency; on Cardene- now controlled 3. Mild troponin elevation; highest 106. EKG shows SR. No acute changes as compared to previous 07/09/21. Most probably type II, demand ischemia in setting of #2. Follows with [facility], Dr. Granados 4. LUCIANO vs CKD 5. Hypomagnesemia; replaced 6. Hyperlipidemia 7. Morbid obesity 8. Pituitary adenoma: followed by outpt plastic outfitter Recommendations Trend trop BP control- resume home antiHTN therapy. Titrate off Cardene Monitor trend and adjust therapy as warranted Echocardiogram ASA, statin Will need further ischemic evaluation- possibly on an outpatient basis pending trop peak and echocardiogram Supportive care GILMER MUELLER MD 12/29/21 0393: CARDIAC CONSULT ASSESSMENT/PLAN ASSESSMENT/PLAN Patient seen and examined. Agree with DIMMER BOARD OPERATOR's assessment and plan. Chest pain with atypical features. Resume home antihypertensives and titrate for better blood pressure control. Wean Cardene off as tolerated. Slight troponin elevation probably demand ischemia. Check 2D echo to assess LV function and rule out wall motion abnormalities. Plan ischemic evaluation as outpatient. Thank you for your consultation. JOSHUA CANNON APRN December 29, 2021 09:20 GILMER MUELLER MD December 29, 2021 13:45
[2021-12-29] MEDS: ASPIRIN ENTERIC COATED 81 MG TABLET.DR. PO SCH (09:24)
[2021-12-29 10:04] LABS: CHOLESTEROL/HDL RATIO 4.6
--- NOTE | 2021-12-29 11:56 | HP ---
DATE OF SERVICE: 12/29/2021 ADMIT DATE: 12/29/2021 CHIEF COMPLAINT: Chest pain. HISTORY OF PRESENT ILLNESS: The patient is a pleasant 41-year-old female who presented to the ER with chest pain. She was noted to have a slight elevation of her troponin, but more importantly she had a hypertensive urgency. She has now been admitted to the ICU on a Cardene drip where she has been examined. PAST MEDICAL HISTORY: Hypertension, probable noncompliance, pituitary adenoma, osteoarthritis. ALLERGIES: None. FAMILY HISTORY: Coronary artery disease. SOCIAL HISTORY: She does not drink, smoke or take drugs. MEDICATIONS: Reviewed, please refer to the MRAD. REVIEW OF SYSTEMS: GENERAL: No history of weight change, weakness or fevers. SKIN: No bruising, hair changes or rashes. EYES: No blurred, double or loss of vision. NOSE AND THROAT: No history of nosebleeds, hoarseness or sore throat. HEART: No history of palpitations, chest pain or shortness of breath on exertion. LUNGS: Denies cough, hemoptysis, wheezing or shortness of breath. GASTROINTESTINAL: Denies changes in appetite, nausea, vomiting, diarrhea or constipation. GENITOURINARY: No history of frequency, urgency, hesitancy or nocturia. NEUROLOGIC: Denies history of numbness, tingling, tremor or weakness. PSYCHIATRIC: No history of panic, anxiety or depression. ENDOCRINE: No history of heat or cold intolerance, polyuria or polydipsia. EXTREMITIES: Denies muscle weakness, joint pain, pain on walking or stiffness. PHYSICAL EXAMINATION: VITALS: Within normal limits and are stable. GENERAL: No apparent distress. Alert and oriented. HEENT: Normal cephalic atraumatic, external auditory canals are patent. EYES: Extraocular muscles are intact, pupils are equally round and reactive to light and accommodation. MUSCULOSKELETAL: Well developed, well nourished, good range of motion. ENDOCRINE: No thyromegaly was palpated. LYMPHATICS: No cervical chain or axillary nodes were noted. HEMATOPOIETIC: No bruising. NECK: Supple, no JVD, no thyromegaly was noted. LUNGS: Clear to auscultation in all lung valdez without rhonchi or wheezing. HEART: RRR, S1, S2 present. Peripheral pulses intact, no obvious murmurs were noted. ABDOMEN: Soft, nontender. Positive bowel sounds no organomegaly, normal bowel sounds. EXTREMITIES: Without any cyanosis, clubbing, or edema. Pedal pulses intact, Homans sign is negative. NEUROLOGIC: Normal speech, normal tone. A and O x 3, moves all extremities, no obvious focal deficits. PSYCHIATRIC: Normal affect, normal mood. Stable. SKIN: No ulcerations or rashes, good skin turgor, no jaundice. VASCULAR: Good capillary refill, neurovascular bundle appears to be intact. ASSESSMENT AND PLAN: Resolving hypertensive urgency and elevated troponin, suspect secondary to demand ischemia. For now, we have her in the ICU. We are trying to wean her off the Cardene drip. We started her back on her home medications. Consult Cardiology. Deep venous thrombosis prophylaxis. Full code. Serial enzymes, serial EKGs. PRITESH/FLORIDALMA DR: PRITESH/nabeel TID: [id number]
[2021-12-29] MEDS ORDERED: HEPARIN for IV BOLUS 10,000 UNIT/10 ML VIAL. IV PRN (14:00)
[2021-12-29] MEDS ORDERED: HEPARIN 25,000UTS/250ML PREMIX 250 ML IV PRN (14:00)
[2021-12-29 15:51] LABS: HEMATOCRIT 44.2 % (36.0-47.0); HEMOGLOBIN 14.3 g/dL (12.0-15.5); RED BLOOD COUNT 4.84 x10^6/uL (3.50-5.40); RED CELL DISTRIBUTION WIDTH 15.1 % (11.5-14.5)
--- NOTE | 2021-12-29 17:18 | CARD ---
MR#: [id number] Date of Study: 12/29/2021 Ordering Physician: JOSHUA CANNON, Referring Physician: JOSHUA CANNON, Nhnug: John Chinchilla [facility] APPROVED REPORT EXAM: Two-dimensional and M-mode echocardiogram with Doppler and color Doppler. Other Information Quality : FairHR: 79bpm Rhythm : NSR INDICATION Cardiac Disease: CAD RISK FACTORS Hypertension Obesity 2D DIMENSIONS Left Atrium(2D)3.6 (1.6-4.0cm)IVSd1.3 (0.7-1.1cm) Aortic Root(2D)3.1 (2.0-3.7cm)LVDd4.0 (3.9-5.9cm) LVOT Diameter1.9 (1.8-2.4cm)PWd1.3 (0.7-1.1cm) LA Gnosrj39 (18-58mL)LVDs2.6 (2.5-4.0cm) FS (%) 36.3 %SV47.2 ml LVEF(%)66.6 (>50%) Aortic Valve AoV Peak Roly.165.9cm/sAoV VTI27.7cm AO Peak GR.11.0mmHgLVOT VTI 18.40cm AO Mean GR.7mmHg Mitral Valve MV E Ljzgbcyx48.0cm/sMV DECEL [id number] MV A Lblehocz91.4cm/sE/A Ratio0.9 TDI Lateral E' P. V5.66cm/sMedial E' P. V5.66cm/s E/Lateral E'14.7E/Medial E'14.7 Pulmonary Valve PV Peak Iebppjwh188.7cm/s Tricuspid Valve TR P. Yiyloiha565au/sTR Peak Gr.29mmHg LEFT VENTRICLE The left ventricle is normal size. There is mild concentric left ventricular hypertrophy. The left ve ntricular systolic function is normal and the ejection fraction is within normal range. EF 55% There is normal LV segmental wall motion. Transmitral Doppler flow pattern is Grade I-abnormal relaxation p attern. No left ventricle thrombus noted on this study. There is no ventricular septal defect visuali zed. There is no left ventricular aneurysm. There is no mass noted in the left ventricle. RIGHT VENTRICLE The right ventricle is normal size. There is normal right ventricular wall thickness. The right ventr icular systolic function is normal. ATRIA The left atrium size is normal. The right atrium size is normal. The interatrial septum is intact wit h no evidence for an atrial septal defect or patent foramen ovale as noted on 2-D or Doppler imaging. AORTIC VALVE The aortic valve is normal in structure and function. Doppler and Color Flow revealed no significant aortic regurgitation. There is no significant aortic valvular stenosis. There is no aortic valvular v egetation. MITRAL VALVE The mitral valve is normal in structure and function. There is no evidence of mitral valve prolapse. There is no mitral valve stenosis. Doppler and Color Flow revealed no mitral valve regurgitation note d. TRICUSPID VALVE The tricuspid valve is normal in structure and function. Doppler and Color Flow revealed trace tricus pid regurgitation. There is no tricuspid valve prolapse or vegetation. There is no tricuspid valve st enosis. PULMONIC VALVE Doppler and Color Flow revealed no pulmonic valvular regurgitation. There is no pulmonic valvular jony nosis. GREAT VESSELS The aortic root is normal in size. The ascending aorta is normal in size. The pulmonary artery is nor mal. The IVC is normal in size and collapses >50% with inspiration. PERICARDIAL EFFUSION There is no pleural effusion. There is no evidence of significant pericardial effusion. Critical Notification Critical Value: No <Conclusion> The left ventricular systolic function is normal and the ejection fraction is within normal range. EF 55% There is normal LV segmental wall motion. Signed by : Luis Carlos Zee, Electronically Approved : 12/29/2021 17:17:21
[2021-12-29] MEDS ORDERED: ATORVASTATIN CALCIUM 20 MG TABLET PO SCH (21:00)
--- NOTE | 2021-12-29 23:00 | NUR ---
Heparin Drip is continuing to run at 10mL/hr due to heparin drip not being continued to patient. This nurse found at 2029 will check UFH per protocol
[2021-12-29] MEDS: hydrALAZINE 20 MG/ML VIAL. IVP PRN (23:41)
[2021-12-30] VITALS (28 sets, daily range): BP systolic 132–164; BP diastolic 76–102
[2021-12-30 03:12] LABS: HEMATOCRIT 43.7 % (36.0-47.0); HEMOGLOBIN 14.5 g/dL (12.0-15.5); RED BLOOD COUNT 4.8 x10^6/uL (3.50-5.40); RED CELL DISTRIBUTION WIDTH 15.2 % (11.5-14.5); WHITE BLOOD COUNT 13.7 x10^3/uL (4.0-11.0)
[2021-12-30 03:22] LABS: CALCIUM 8.8 mg/dL (8.5-10.1); CREATININE 1.4 mg/dL (0.6-1.0); GFR 49.7; POTASSIUM 3.8 mmol/L (3.5-5.1)
[2021-12-30] MEDS: ASPIRIN ENTERIC COATED 81 MG TABLET.DR. PO SCH (08:51)
[2021-12-30] MEDS: SPIRONOLACTONE 25 MG TABLET PO SCH (08:51)
[2021-12-30] MEDS: PROPRANOLOL 40 MG TABLET. PO SCH ×2 (08:52→21:15)
[2021-12-30] MEDS ORDERED: LIDOCAINE 1% PF 2 ML VIAL. ONE (09:47)
[2021-12-30] MEDS ORDERED: IODIXANOL 320 MG/ML 100 ML VIAL. ONE ×2 (09:47→10:44)
[2021-12-30] MEDS ORDERED: fentaNYL PF VIAL 100 MCG/2 ML VIAL ONE (09:55)
[2021-12-30] MEDS ORDERED: MIDAZOLAM HCL/PF 2 MG/2 ML VIAL. ONE ×2 (09:55→10:27)
[2021-12-30] MEDS ORDERED: NITROGLYCERIN 200 MCG/2 ML SYRINGE FOR CATH/VASC LAB. ONE ×2 (09:55→10:43)
[2021-12-30] MEDS ORDERED: VERAPAMIL 5 MG/2 ML VIAL. ONE (09:55)
[2021-12-30] MEDS ORDERED: HEPARIN for IV BOLUS 10,000 UNIT/10 ML VIAL. ONE (09:55)
[2021-12-30] MEDS ORDERED: BIVALIRUDIN 250 MG VIAL. IVP ONE ×2 (10:33→11:00)
--- NOTE | 2021-12-30 10:49 | PDOC ---
[employer] PROGRESS NOTE Date of Service DOS: DATE: 12/30/21 TIME: 10:47 Chief Complaint Chief Complaint Chest pain Elevated troponin Hypertensive urgency Hypertension, probable noncompliance, pituitary adenoma, osteoarthritis. History of Present Illness History of Present Illness 12/30/2021 Patient seen and examined Discussed with RN Chart reviewed She is scheduled for cardiac cath today Vitals/I&O Vitals/I&O: Vital Signs Date Time Temp Pulse Resp B/P (MAP) Pulse Ox O2 Delivery O2 Flow Rate FiO2 12/30/21 09:00 70 17 162/95 96 Room Air 12/30/21 08:00 98.2 98.2 I & O 12/29/21 12/29/21 12/30/21 15:00 23:00 07:00 Intake Total 419 ml 494.2 ml Output Total 1 ml 2 ml Balance 418 ml 492.2 ml Physical Exam General: Alert Heart: Regular rate Lungs: Clear Abdomen: Normal bowel sounds Extremities: No clubbing Skin: No rashes Labs Labs: Laboratory Tests Test 12/29/21 12:27 12/29/21 15:10 12/29/21 22:30 12/30/21 03:05 Troponin I High Sensitivity 1672 ng/L (4-50) White Blood Count 17.0 x10^3/uL (4.0-11.0) 13.7 x10^3/uL (4.0-11.0) Red Blood Count 4.84 x10^6/uL (3.50-5.40) 4.80 x10^6/uL (3.50-5.40) Hemoglobin 14.3 g/dL (12.0-15.5) 14.5 g/dL (12.0-15.5) Hematocrit 44.2 % (36.0-47.0) 43.7 % (36.0-47.0) Mean Corpuscular Volume 91 fL (79-100) 91 fL (79-100) Mean Corpuscular Hemoglobin 30 pg (25-35) 30 pg (25-35) Mean Corpuscular Hemoglobin Concent 32 g/dL (31-37) 33 g/dL (31-37) Red Cell Distribution Width 15.1 % (11.5-14.5) 15.2 % (11.5-14.5) Platelet Count 368 x10^3/uL (140-400) 358 x10^3/uL (140-400) Activated Partial Thromboplast Time 37 SEC (24-38) Heparin Anti-Xa Act, Unfractionated < 0.10 IU/mL (0.30-0.70) < 0.10 IU/mL (0.30-0.70) Sodium Level 137 mmol/L (136-145) Potassium Level 3.8 mmol/L (3.5-5.1) Chloride Level 103 mmol/L (98-107) Carbon Dioxide Level 25 mmol/L (21-32) Anion Gap 9 (6-14) Blood Urea Nitrogen 19 mg/dL (7-20) Creatinine 1.4 mg/dL (0.6-1.0) Estimated GFR (Cockcroft-Gault) 49.7 Glucose Level 168 mg/dL (70-99) Calcium Level 8.8 mg/dL (8.5-10.1) Test 12/30/21 09:05 Heparin Anti-Xa Act, Unfractionated 0.83 IU/mL (0.30-0.70) Assessment and Plan Assessmemt and Plan Problems Medical Problems: (1) Chest pain Status: Acute (2) Hypertensive urgency Status: Acute Chest pain Elevated troponin Hypertensive urgency Hypertension, probable noncompliance, pituitary adenoma, osteoarthritis. Plan Going for cardiac cath today For now continue ICU monitoring Trend troponins Home meds DVT prophylaxis Full code Await cardiac cath results Comment Review of Relevant I have reviewed the following items karan (where applicable) has been applied. Medications: Current Medications Medications (Trade) Dose Ordered Sig/Devin Route PRN Reason Start Time Stop Time Status Last Admin Dose Admin Atorvastatin Calcium (Lipitor) 20 mg QHS PO 12/29/21 21:00 12/29/21 20:59 Heparin Sodium/ Dextrose 250 ml @ 10 mls/hr CONT PRN IV PER PROTOCOL 12/29/21 14:00 12/29/21 16:30 Heparin Sodium (Porcine) (Heparin Sodium) 3,150 unit PRN Q6HRS PRN IV FOR UFH LEVEL LESS THAN 0.2 12/29/21 14:00 12/30/21 03:46 Justifications for Admission Other Justification KALI CARREON K III DO December 30, 2021 10:49
[2021-12-30] MEDS ORDERED: HEPARIN for IV BOLUS 10,000 UNIT/10 ML VIAL. IART ONE (11:00)
[2021-12-30] MEDS ORDERED: MIDAZOLAM HCL/PF 2 MG/2 ML VIAL. IV ONE (11:00)
[2021-12-30] MEDS ORDERED: LIDOCAINE 1% PF 2 ML VIAL. INJ ONE (11:00)
[2021-12-30] MEDS ORDERED: fentaNYL PF VIAL 100 MCG/2 ML VIAL IV ONE (11:00)
[2021-12-30] MEDS ORDERED: ANTI-COAG MONITOR BY PHARMACY. MC PRN (11:00)
[2021-12-30] MEDS ORDERED: IODIXANOL 320 MG/ML 100 ML VIAL. IART ONE (11:00)
[2021-12-30] MEDS ORDERED: VERAPAMIL 5 MG/2 ML VIAL. IART ONE (11:00)
[2021-12-30] MEDS ORDERED: TICAGRELOR 90 MG TABLET. PO ONE (11:00)
[2021-12-30] MEDS ORDERED: NITROGLYCERIN 200 MCG/2 ML SYRINGE FOR CATH/VASC LAB. IART ONE (11:00)
[2021-12-30] MEDS ORDERED: ASPIRIN 325 MG TABLET PO ONE (11:00)
[2021-12-30] MEDS ORDERED: TICAGRELOR 90 MG TABLET. ONE (11:10)
[2021-12-30] MEDS ORDERED: ASPIRIN 325 MG TABLET ONE (11:10)
--- NOTE | 2021-12-30 11:13 | PDOC ---
MODERATE SEDATION ASSESSMENT RISKS/ALTERNATIVES Risks/Alternatives Risks and alternatives of this type of sedation and procedure discussed with: RISK/ALTERNATIVES: Patient H & P ON CHART H & P H & P on chart and reviewed for co-morbid conditions and appropriate labs. H&P ON CHART: Yes STATUS PREG STATUS ASSESSED: N/A MEDS/ALLERGIES REVIEWED Meds/Allergies Reviewed Medications and Allergies including time and route of recently administered narcotics and sedatives. MEDS/ALLERGIES REVIEWED: Yes ASA RATING ASA RATING: III AIRWAY ASSESSMENT Airway Assessment Airway patency, oral function limitations, presence of caps, crowns, dentures, partials, and ability to extend neck assessed. AIRWAY ASSESSMENT: Yes MALLAMPATI SCORE MALLAMPATI SCORE: II PRE-SEDATION ASSESSMENT PRE-SEDATION ASSESSMENT: Yes GILMER MUELLER MD December 30, 2021 11:13
[2021-12-30] MEDS: IV 1/2 NORMAL SALINE 1,000 ML IV SCH ×2 (11:15→23:12)
--- NOTE | 2021-12-30 11:35 | CARD ---
MR#: [id number] Date of Study: 12/30/2021 Ordering Physician: JOSHUA CANNON, Referring Physician: JOSHUA CANNON, Tech: RT Fer(R) APPROVED REPORT Technologist: RT Fer(R) Nurse: Joseluis Do RN Procedure(s) performed: 1. Left heart catheterization, selective coronary angiography and left ventr iculography via right transradial approach 2. Successful PCI/drug-eluting stent placement to the ramus intermedius artery Fluoro time: 15 min dose: [id number] contrast: 235cc moderate sedation: 61 min INDICATION The indication(s) include : non-STEMI . [facility] Clinical Frailty Scale [facility] Clinical Frailty Scale: Managing Well Heart Failure Heart Failure: No CASE TECHNIQUE IV conscious sedation was used throughout procedure with appropriate monitoring and was performed in the presence of a registered nurse who was an independent trained observer other than the physician p erforming the procedure. During this case, Fluoroscopy and low osmolar contrast were used for imaging . Specimen(s) Removed: No Estimated Blood loss: 15 cc's. PROCEDURE NARRATIVE After explaining the risks, benefits and alternative options, informed consent was obtained from dontae ent. 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 Arterial access was obtained in the righ t radial artery and a 6 Zambian sheath was inserted. 6 [place]ian Valerio catheter was used to perform bonnie ective angiography of the left and right coronary arteries. 6 [place]ian pigtail catheter was used to pe rform left ventriculography. The following findings were noted. FINDINGS 1. Hemodynamics: Elevated left ventricular end-diastolic pressure of 33 mmHg consistent with acute d iastolic heart failure. 2. Left ventriculography: Normal left ventricle systolic function with ejection fraction estimated at 60%. No significant mitral regurgitation seen. 3. Coronary angiography: a. The left main coronary artery arose from the left sinus of Valsalva, gave rise to the left anteri or descending, ramus intermedius and left circumflex arteries and did not show any significant stenos is. b. The left anterior descending artery did not show any significant stenosis. c. The left circumflex artery did not show any significant stenosis. d. The ramus intermedius artery showed 95% stenosis in the midsegment. e. The right coronary artery arose from the right sinus of Valsalva and did not show any significant stenosis. INTERVENTION The left main coronary artery was engaged with a 6 [place]ambian XB 3.5 guide catheter. The stenosis in the ramus intermedius artery was crossed with a 0.014 inch [employer] guidewire. This was predilate d with a 2.0 x 15 mm Euphora balloon following which this was treated with a 2.25 x 18 mm resolute On yx drug-eluting stent. Follow-up angiography showed an area of dissection just distal to the stent. This was successfully treated with overlapping 2.25 x 15 mm resolute Contreras drug-eluting stent. Follo w-up angiography showed resolution of the stenosis with ANNELISE-3 distal flow. Patient tolerated the pr ocedure well. Hemostasis was achieved using TR band. There were no immediate complications. ANNELISE Flow ANNELISE Flow (Pre-Intervention): ANNELISE-1 ANNELISE Flow (Post-Intervention): ANNELISE-3 Conclusion 1. Severe single-vessel coronary artery disease involving the ramus intermedius artery 2. Successful PCI/drug-eluting stent placement to the ramus intermedius artery 3. Normal left ventricle systolic function with ejection fraction estimated at 60% 4. Elevated left ventricular end-diastolic pressure of 33 mmHg consistent with acute diastolic heart failure Recommendations 1. Aspirin 81 mg daily 2. Ticagrelor 90 mg twice daily 3. Cardiovascular risk factor modification Signed by : Perry Wu, Electronically Approved : 12/30/2021 11:34:49
[2021-12-30] MEDS ORDERED: ATORVASTATIN CALCIUM 40 MG TABLET. PO SCH (21:00)
--- NOTE | 2021-12-30 22:00 | NUR ---
Pt refused atorvastatin at h.s. States that it "gives her a nitro-type headache". Educated on side effects of atorvastatin but patient continues to refuse.
[2021-12-31 03:00] VITALS: BP 165/100
[2021-12-31] MEDS: hydrALAZINE 20 MG/ML VIAL. IVP PRN (03:42)
[2021-12-31 07:23] VITALS: BP 156/99
[2021-12-31] MEDS ORDERED: ASPIRIN ENTERIC COATED 325 MG TABLET.DR. PO SCH (08:00)
[2021-12-31] MEDS ORDERED: ASPIRIN ENTERIC COATED 81 MG TABLET.DR. PO SCH (08:00)
--- NOTE | 2021-12-31 08:03 | PDOC ---
[employer] PROGRESS NOTE Date of Service DOS: DATE: 12/31/21 TIME: 08:01 Chief Complaint Chief Complaint Chest pain Elevated troponin Hypertensive urgency Hypertension, probable noncompliance, pituitary adenoma, osteoarthritis. History of Present Illness History of Present Illness 12/31/2021 Patient seen and examined Discussed with RN Chart reviewed She got 2 cardiac stents yesterday Clinically looks great today wants to go home Will discharge if okay with cardiology 12/30/2021 Patient seen and examined Discussed with RN Chart reviewed She is scheduled for cardiac cath today Vitals/I&O Vitals/I&O: Vital Signs Date Time Temp Pulse Resp B/P (MAP) Pulse Ox O2 Delivery O2 Flow Rate FiO2 12/31/21 07:27 Room Air 12/31/21 07:23 89.4 80 18 156/99 98 89.4 12/30/21 11:00 2.0 I & O 12/30/21 12/30/21 12/31/21 15:00 23:00 07:00 Intake Total 111 ml 534 ml 1670 ml Output Total 2 ml 4 ml Balance 111 ml 532 ml 1666 ml Physical Exam General: Alert Heart: Regular rate Lungs: Clear Abdomen: Normal bowel sounds Extremities: No clubbing Skin: No rashes Labs Labs: Laboratory Tests Test 12/30/21 09:05 Heparin Anti-Xa Act, Unfractionated 0.83 IU/mL (0.30-0.70) Assessment and Plan Assessmemt and Plan Problems Medical Problems: (1) Chest pain Status: Acute (2) Hypertensive urgency Status: Acut Status post cardiac cath with 2 new stents Chest pain Elevated troponin Hypertensive urgency Hypertension, probable noncompliance, pituitary adenoma, osteoarthritis. Plan Probable discharge this afternoon if okay with cardiology For now continue the following: Cardiac cocktail with beta-blockers statins antiplatelet drugs RUSSEL inhibitor's etc. Home meds DVT prophylaxis Full code Appreciate cardiology input Comment Review of Relevant I have reviewed the following items karan (where applicable) has been applied. Medications: Current Medications Medications (Trade) Dose Ordered Sig/Devin Route PRN Reason Start Time Stop Time Status Last Admin Dose Admin Nitroglycerin (Nitroglycerin) 400 mcg 1X ONCE IART 12/30/21 11:00 12/30/21 11:05 DC 12/30/21 11:00 Verapamil HCl (Verapamil) 2.5 mg 1X ONCE IART 12/30/21 11:00 12/30/21 11:05 DC 12/30/21 10:24 Heparin Sodium (Porcine) (Heparin Sodium) 2,500 unit 1X ONCE IART 12/30/21 11:00 12/30/21 11:05 DC 12/30/21 11:00 Heparin Sodium/ Sodium Chloride (HEPARIN for ARTERIAL LINE FLUSH) 1,000 unit 1X ONCE IART 12/30/21 11:00 12/30/21 11:05 DC 12/30/21 11:00 Midazolam HCl (Versed) 2 mg 1X ONCE IV 12/30/21 11:00 12/30/21 11:05 DC 12/30/21 10:53 Fentanyl Citrate (Fentanyl 2ml Vial) 100 mcg 1X ONCE IV 12/30/21 11:00 12/30/21 11:05 DC 12/30/21 11:00 Iodixanol (Visipaque 320) 100 ml 1X ONCE IART 12/30/21 11:00 12/30/21 11:05 DC 12/30/21 11:00 Bivalirudin (Angiomax) 250 mg 1X ONCE IVP 12/30/21 11:00 12/30/21 11:05 DC 12/30/21 11:00 Ticagrelor (Brilinta) 180 mg 1X ONCE PO 12/30/21 11:00 12/30/21 11:06 DC 12/30/21 11:00 Aspirin (Addie Aspirin) 325 mg 1X ONCE PO 12/30/21 11:00 12/30/21 11:06 DC 12/30/21 11:00 Lidocaine HCl (Xylocaine-Mpf 1% 2ml Vial) 2 ml 1X ONCE INJ 12/30/21 11:00 12/30/21 11:06 DC 12/30/21 11:00 Sodium Chloride 1,000 ml @ 75 mls/hr [id number] IV 12/30/21 11:15 12/30/21 11:15 Justifications for Admission Other Justification KALI CARREON III DO December 31, 2021 08:03
[2021-12-31] MEDS ORDERED: ASPI-886 PO (08:07)
[2021-12-31] MEDS ORDERED: ATOR40TA59 PO (08:07)
[2021-12-31] MEDS ORDERED: TICA90TA PO (08:07)
[2021-12-31] MEDS: SPIRONOLACTONE 25 MG TABLET PO SCH (08:35)
[2021-12-31] MEDS: PROPRANOLOL 40 MG TABLET. PO SCH (08:37)
[2021-12-31] MEDS ORDERED: TICAGRELOR 90 MG TABLET. PO SCH (09:00)
[2021-12-31] MEDS ORDERED: CRESTOR40 MG PO (09:42)
--- NOTE | 2021-12-31 09:46 | PDOC ---
SAMMI OLVEAR CREDIT ADMINISTRATION MANAGER 12/31/21 0946: CARDIO Progress Notes Date and Time Date of Service 12/31/2021 Time of Evaluation 0930 Subjective Subjective: No Chest Pain, No shortness of breath, No Palpitations Vitals Vitals Vital Signs Date Time Temp Pulse Resp B/P (MAP) Pulse Ox O2 Delivery O2 Flow Rate FiO2 12/31/21 08:37 88 133/74 12/31/21 07:27 Room Air 12/31/21 07:23 89.4 18 98 89.4 12/30/21 11:00 2.0 Weight Weight [ ] Input and Output Intake and Output Intake and Output 12/31/21 07:00 Intake Total 2315 ml Output Total 6 ml Balance 2309 ml Intake Oral 1500 ml IV Total 815 ml Output Urine Total 6 ml Physical Exam HEENT: Neck Supple W Full Motion Chest: Symmetric LUNGS: Clear to Auscultation Heart: S1S2, RRR (SR) Abdomen: Soft N/T Extremities: No Edema, No Calf Tenderness Neurology: alert, oriented, follow commands Assessment Assessment 1. NSTEMI, S/P PCI/EMILI to RI .EF is nml 2. Hypertensive urgency; controlled 3. CAD: as noted above 4. LUCIANO vs CKD 5. Hypomagnesemia; replaced 6. Hyperlipidemia: not on goal 7. Morbid obesity 8. Pituitary adenoma: followed by outpt manager analytical Recommendations Prefers not to be on lipitor and will change to crestor Continue ASA and brilinta. Secondary prevention measures Cardiac rehab Follow up with [facility] cardiology, Dr. Granados Justicifation of Admission Dx: Justifications for Admission: Justification of Admission Dx: Yes GILMER MUELLER MD 12/31/21 1610: CARDIO Progress Notes Assessment Assessment Patient seen and examined. Agree with GUEST SERVICE AIDE's assessment and plan. Non-STEMI, s/p PCI/EMILI to ramus intermedius, chest pain-free Blood pressure better controlled Telemetry did not show any significant arrhythmias 2D echo showed normal LV systolic function Continue DAPT Follow-up with primary cardiology SAMMI OLVERA CREDIT ADMINISTRATION MANAGER December 31, 2021 09:46 GILMER MUELLER MD December 31, 2021 16:10
[2021-12-31 11:00] VITALS: BP 123/67
--- NOTE | 2021-12-31 12:26 | NUR ---
Discharge Note: [facility] [place] ICU Discharge instructions and discharge home medications reviewed with Patient and a copy given. All questions have been answered and understanding verbalized. The following instructions and handouts were given: Follow up with [facility] cook night as scheduled. Education pertaining to Stent, heart disease, diet, signs and symptoms, medication was discussed and given to patient. Discontinued lines and drains: 20g L AC was removed with tip intact. Patient discharged to Patient drove herself from the [facility] facility.
--- NOTE | 2022-01-01 10:50 | DS ---
DATE OF DISCHARGE: 12/31/2021 ADMISSION DIAGNOSES: Hypertensive urgency and elevated troponin and chest pain. DISCHARGE DIAGNOSES: Resolving hypertensive urgency, status post cardiac catheterization with 2 new stents placed. HOSPITAL COURSE: The patient is a pleasant middle-aged female who presented with some chest pain. She had a slight bump in her troponin. We consulted Cardiology. We gave her IV antihypertensives. She was nearly ready to go home, but then her troponin bumped up even higher from 106-1672. She was then taken to the engineering laboratory technician. They had placed 2 stents. Post-procedure, she did well. I saw and examined her yesterday. She wanted to go home. We discharged home. DISPOSITION: Home. ACTIVITY: As tolerated. DIET: Cardiac. DISCHARGE MEDICATIONS: Aspirin 81 mg a day, Crestor 40 mg a day, Brilinta 90 mg b.i.d., amlodipine 10 mg a day, clonidine 0.1 mg p.r.n., propranolol 60 mg b.i.d., Aldactone 50 mg a day. TOTAL TIME: [address]: Linda TID: [id number]
== END 2021-12-31 12:29 | disposition home or self-care (01) | DRG 246 ==
LOC: ER 00:10 → 6 SOUTH 03:03 → 1 WEST ICU 04:33
PROVIDERS: ADMIT Internal Medicine; ATTEND Internal Medicine
PROC: 027035Z Dilation of Coronary Artery, One Artery with Two Drug-eluting Intraluminal Devices, Percutaneous Approach (ICD-10-PCS; principal; 2021-12-30)
PROC: 4A023N7 Measurement of Cardiac Sampling and Pressure, Left Heart, Percutaneous Approach (ICD-10-PCS; 2021-12-30)
PROC: B2111ZZ Fluoroscopy of Multiple Coronary Arteries using Low Osmolar Contrast (ICD-10-PCS; 2021-12-30)
PROC: B2151ZZ Fluoroscopy of Left Heart using Low Osmolar Contrast (ICD-10-PCS; 2021-12-30)
DX: I21.4 Non-ST elevation (NSTEMI) myocardial infarction (principal); I50.31 Acute diastolic (congestive) heart failure; Z68.41 Body mass index [BMI] 40.0-44.9, adult; I16.0 Hypertensive urgency; I24.8 Other forms of acute ischemic heart disease; D35.2 Benign neoplasm of pituitary gland; E66.01 Morbid (severe) obesity due to excess calories; E78.5 Hyperlipidemia, unspecified; E83.42 Hypomagnesemia; I10 Essential (primary) hypertension; I25.10 Atherosclerotic heart disease of native coronary artery without angina pectoris; J45.909 Unspecified asthma, uncomplicated; M19.90 Unspecified osteoarthritis, unspecified site; Z82.49 Family history of ischemic heart disease and other diseases of the circulatory system; Z91.19 Patient's noncompliance with other medical treatment and regimen; Z95.5 Presence of coronary angioplasty implant and graft; Z96.642 Presence of left artificial hip joint; F41.9 Anxiety disorder, unspecified; Z87.440 Personal history of urinary (tract) infections; I11.0 Hypertensive heart disease with heart failure
CPT/HCPCS: 36415; 71045; 80048; 80053; 80061; 81001; 83690; 83735; 83880; 84443; 84484; 85025; 85027; 85520; 85730; 92928; 93005; 93306; 93458; 96365; 96375; 99152; 99153; C1725; C1769; C1874; C1894; J0360; J0583; J1644; J2250; J2405; J2765; J3010; J3475; J3490; J7050; Q9967; 99285-25; C8929; G0378; J7030